=== PATIENT | female | born 1965 | race Caucasian/White ===

== ENCOUNTER 2017-07-19 06:38 | Emergency (ER) | payer SELFPAY ==
[~2017-07-19] VITALS: Ht 167.6 cm; Wt 75.2 kg
[~2017-07-19 06:38] MED LIST: Amlodipine; CITA40TA5 PO; LORA0.5T PO; LOSA1TAB25 PO; hydrochlorothiazide
[2017-07-19] MEDS ORDERED: CITA40TA5 PO (07:13)
[2017-07-19] MEDS ORDERED: SODIUM CHLORIDE 0.9% 1,000 ML IV ONE (07:14)
[2017-07-19] MEDS ORDERED: ONDANSETRON 2MG/ML, 2ML ONE (07:20)
[2017-07-19] MEDS ORDERED: SODIUM CHLORIDE FLUSH 10ML SYR IVF ONE (07:30)
[2017-07-19] MEDS ORDERED: ONDANSETRON 2MG/ML, 2ML IVPush ONE (07:30)
[2017-07-19] MEDS ORDERED: SODIUM CHLORIDE 0.9% 1,000ML IVBOLUS ONE (07:30)
[2017-07-19 07:36] LABS: BASOPHILS # (AUTO) 0.02 x10^3/uL (0-0.1); BASOPHILS % (AUTO) 0 % (0-1); EOSINOPHILS # (AUTO) 0.06 x10^3/uL (0-0.4); EOSINOPHILS % (AUTO) 1 % (1-7); LYMPHOCYTES # (AUTO) 0.96 x10^3/uL (1-3.4); LYMPHOCYTES % (AUTO) 17 % (22-44); MD NO; MEAN CORPUSCULAR HEMOGLOBIN 32.6 pg (27.0-34.8); MEAN CORPUSCULAR VOLUME 95.8 fL (80-100); MEAN PLATELET VOLUME 7.5 fL (7.4-10.4); MONOCYTES # (AUTO) 0.43 x10^3/uL (0.2-0.8); MONOCYTES % (AUTO) 8 % (2-9); NEUTROPHILS % (AUTO) 75 % (42-75); PLATELET COUNT 254 x10^3/uL (130-400); RED BLOOD COUNT 4.31 x10^6/uL (3.82-5.3); RED CELL DISTRIBUTION WIDTH 14.8 % (9.6-15.2)
[2017-07-19 07:37] LABS: MICROSCOPIC NOT IND
[2017-07-19 07:38] LABS: CULTURE INDICATED? NO
[2017-07-19 07:48] LABS: ALBUMIN 3.8 g/dL (3.4-5.0); ANION GAP 13 mmol/L (5-15); CALCIUM 9.4 mg/dL (8.5-10.1); CHLORIDE 98 mmol/L (98-107)
[2017-07-19 07:51] LABS: ALANINE AMINOTRANSFERASE 80 U/L (12-78); ALKALINE PHOSPHATASE 134 U/L (45-117); BILIRUBIN,TOTAL 1.4 mg/dL (0.2-1.0); CREATININE 0.93 mg/dL (0.55-1.02); TOTAL PROTEIN 8.7 g/dL (6.4-8.2)
[2017-07-19] MEDS ORDERED: MAALOX/HYOSCYAMINE/LIDOCAINE 45 ML BTL PO ONE (08:30)
[2017-07-19] MEDS ORDERED: MAALOX/HYOSCYAMINE/LIDOCAINE 45 ML BTL ONE (08:34)
[2017-07-19] MEDS ORDERED: LORazepam 2 MG/ML, 1ML IVPush ONE (09:00)
[2017-07-19] MEDS ORDERED: POTASSIUM CHLORIDE 20 MEQ TAB.ER.PRT PO ONE (09:00)
[2017-07-19] MEDS ORDERED: LORazepam 1MG TABLET ONE (09:04)
[2017-07-19] MEDS ORDERED: LORazepam 2 MG/ML, 1ML ONE (09:07)
[2017-07-19] MEDS ORDERED: POTASSIUM CHLORIDE 20 MEQ TAB.ER.PRT ONE (09:07)
[2017-07-19 10:27] VITALS: BP 148/73
== END 2017-07-19 10:40 | disposition home or self-care (01) ==
LOC: ED 10:34
DX: K29.20 Alcoholic gastritis without bleeding (principal); E87.6 Hypokalemia; I10 Essential (primary) hypertension
CPT/HCPCS: 36415; 74021; 76700; 80053; 81003; 83690; 85025; 93005; 96361; 96374; 99285; J2060; J2405; J7030

== ENCOUNTER 2017-08-16 06:59 | Emergency (ER) | payer MEDICAID ==
[~2017-08-16] VITALS: Ht 167.6 cm; Wt 76.2 kg
[2017-08-16] MEDS ORDERED: LORazepam 1MG TABLET PO ONE ×2 (08:00→09:30)
[2017-08-16 08:06] LABS: BASOPHILS # (AUTO) 0.05 x10^3/uL (0-0.1); BASOPHILS % (AUTO) 1 % (0-1); EOSINOPHILS # (AUTO) 0.05 x10^3/uL (0-0.4); EOSINOPHILS % (AUTO) 1 % (1-7); LYMPHOCYTES # (AUTO) 0.77 x10^3/uL (1-3.4); LYMPHOCYTES % (AUTO) 8 % (22-44); MD NO; MEAN CORPUSCULAR HEMOGLOBIN 32.7 pg (27.0-34.8); MEAN CORPUSCULAR HGB CONC 34.3 g/dL (32.4-35.8); MEAN CORPUSCULAR VOLUME 95.5 fL (80-100); MEAN PLATELET VOLUME 6.9 fL (7.4-10.4); MONOCYTES # (AUTO) 0.51 x10^3/uL (0.2-0.8); MONOCYTES % (AUTO) 5 % (2-9); NEUTROPHILS # (AUTO) 8.13 x10^3/uL (1.8-6.8); NEUTROPHILS % (AUTO) 86 % (42-75); PLATELET COUNT 222 x10^3/uL (130-400); RED BLOOD COUNT 3.95 x10^6/uL (3.82-5.3); RED CELL DISTRIBUTION WIDTH 14.9 % (9.6-15.2)
[2017-08-16] MEDS ORDERED: LORazepam 1MG TABLET ONE ×2 (08:15→09:26)
[2017-08-16 08:17] LABS: ALANINE AMINOTRANSFERASE 56 U/L (12-78); ALBUMIN 3.8 g/dL (3.4-5.0); ANION GAP 10 mmol/L (5-15); CALCIUM 8.8 mg/dL (8.5-10.1); CHLORIDE 101 mmol/L (98-107); CREATININE 0.72 mg/dL (0.55-1.02)
[2017-08-16 08:19] LABS: ALKALINE PHOSPHATASE 107 U/L (45-117); BILIRUBIN,TOTAL 0.5 mg/dL (0.2-1.0); TOTAL PROTEIN 7.9 g/dL (6.4-8.2)
[2017-08-16 10:49] VITALS: BP 128/97
== END 2017-08-16 10:52 | disposition home or self-care (01) ==
LOC: ED 07:53
DX: F41.1 Generalized anxiety disorder (principal); I10 Essential (primary) hypertension
CPT/HCPCS: 36415; 80053; 85025; 93005; 99285

== ENCOUNTER 2018-11-21 10:14 | Inpatient (IN) | payer MEDICAID, OTHER ==
[~2018-11-21] VITALS: Ht 167.6 cm; Wt 74.0 kg
[2018-11-21] MEDS ORDERED: ONDANSETRON 2MG/ML, 2ML IVPush ONE (10:30)
[2018-11-21] MEDS ORDERED: SODIUM CHLORIDE 0.9% 1,000ML IVBOLUS ONE (10:30)
--- NOTE | 2018-11-21 10:37 | NUR ---
PT TO ED FOR ETOH DETOX. PT STATES LAST DRINK WAS YESTERDAY TO "[employer]." PT REPORTS N/V. CONNECTED TO MONIOTRS.TACHY 120S, ALL OTHER VSS ON RA. EDMD ASSESSMENT COMPLETE AND ORDERS RECEIVED.
[2018-11-21] MEDS ORDERED: LORazepam 2 MG/ML, 1ML ONE ×3 (10:42→15:27)
[2018-11-21] MEDS ORDERED: ONDANSETRON 2MG/ML, 2ML ONE (10:42)
--- NOTE | 2018-11-21 10:57 | NUR ---
PT RESTING IN ROOM [facility] FAMILY AT BS. VSS. IV ESTABLISHED AND LABS DRAWN. PT MEDICATED PER MAR. WARM BLANKETS PROVIDED FOR COMFORT. NO OTHER NEEDS EXPRESSED. CALL LIGHT WITHIN REACH. AWAITING RESULTS.
[2018-11-21] MEDS ORDERED: LORazepam 2 MG/ML, 1ML IVPush ONE ×2 (11:00→13:00)
[2018-11-21 11:08] LABS: BASOPHILS # (AUTO) 0.03 x10^3/uL (0-0.1); BASOPHILS % (AUTO) 0 % (0-1); EOSINOPHILS # (AUTO) 0.01 x10^3/uL (0-0.4); EOSINOPHILS % (AUTO) 0 % (1-7); LYMPHOCYTES % (AUTO) 10 % (22-44); MD NO; MEAN CORPUSCULAR HEMOGLOBIN 30.5 pg (27.0-34.8); MEAN CORPUSCULAR HGB CONC 32.9 g/dL (32.4-35.8); MEAN CORPUSCULAR VOLUME 92.8 fL (80-100); MEAN PLATELET VOLUME 6.1 fL (7.4-10.4); MONOCYTES # (AUTO) 0.29 x10^3/uL (0.2-0.8); MONOCYTES % (AUTO) 5 % (2-9); NEUTROPHILS # (AUTO) 5.27 x10^3/uL (1.8-6.8); NEUTROPHILS % (AUTO) 85 % (42-75); PLATELET COUNT 268 x10^3/uL (130-400); RED BLOOD COUNT 3.63 x10^6/uL (3.82-5.3); RED CELL DISTRIBUTION WIDTH 15.8 % (9.6-15.2)
[2018-11-21 11:18] LABS: ALANINE AMINOTRANSFERASE 66 U/L (12-78); ALBUMIN 3.8 g/dL (3.4-5.0); ANION GAP 11 mmol/L (5-15); CALCIUM 8.8 mg/dL (8.5-10.1); CHLORIDE 96 mmol/L (98-107); CREATININE 0.93 mg/dL (0.55-1.02)
[2018-11-21 11:20] LABS: ALKALINE PHOSPHATASE 110 U/L (45-117); BILIRUBIN,TOTAL 0.6 mg/dL (0.2-1.0)
[2018-11-21] MEDS ORDERED: POTASSIUM CHLORIDE 20 MEQ TAB.ER.PRT PO ONE (11:30)
[2018-11-21] MEDS ORDERED: MAGNESIUM SULFATE 1 GM, THIAMINE 100 MG, FOLIC ACID 1 MG, MVI ADULT 10 ML in SODIUM CHL... IV ONE (11:30)
[2018-11-21] MEDS ORDERED: POTASSIUM CHLORIDE 20 MEQ in SODIUM CHLORIDE 0.9% 250 ML IV ONE (11:30)
[2018-11-21] MEDS ORDERED: POTASSIUM CHLORIDE 20 MEQ TAB.ER.PRT ONE ×2 (11:57→15:26)
[2018-11-21] MEDS ORDERED: NS + 20MEQ KCL 1,000 ML IV ONE (11:58)
--- NOTE | 2018-11-21 12:52 | NUR ---
PT RESTING IN ROOM WITH FAMILY AT BS. EDMD MADE AWARE OF INCREASED TREMORS, TAHYCARDIA, N/V AND HEARTBURN. NO NEEDS EXPRESSED. CALL LIGHT WITHIN REACH. AWAITING ORDERS.
[2018-11-21] MEDS ORDERED: FAMOTIDINE 20 MG/2 ML ONE (12:59)
[2018-11-21] MEDS ORDERED: FAMOTIDINE 20 MG/2 ML IVPush ONE (13:00)
[2018-11-21] MEDS ORDERED: LORazepam 2 MG/ML, 1ML IVPush PRN (13:00)
--- NOTE | 2018-11-21 13:07 | NUR ---
PT RESTING IN ROOM WITH FAMILY AT BS. ORDERS RECEIVED AND MEDICATIONS ADMINISTERED. NO NEEDS EXPRESSED. CALL LIGHT WITHIN REACH. AWAITING ROOM ASSIGNMENT.
--- NOTE | 2018-11-21 14:43 | NUR ---
PT RESTING IN ROOM. NO NEEDS EXPRESSED. CALL LIGHT WITHIN REACH. AWAITING ROOM ASSIGNMENT.
[2018-11-21] MEDS ORDERED: LABETALOL 5MG/ML, 20ML IVPush PRN (15:00)
[2018-11-21] MEDS ORDERED: ONDANSETRON 2MG/ML, 2ML IVPush PRN (15:00)
[2018-11-21] MEDS ORDERED: CHLORDIAZEPOXIDE 25 MG CAPSULE PO PRN (15:00)
[2018-11-21] MEDS ORDERED: LORazepam 0.5MG TABLET PO PRN (15:00)
[2018-11-21] MEDS ORDERED: LORazepam 1MG TABLET PO PRN ×2 (15:00)
[2018-11-21] MEDS ORDERED: LORazepam 2 MG/ML, 1ML IV PRN ×4 (15:00)
[2018-11-21] MEDS ORDERED: PROMETHAZINE 25 MG/ML, 1ML IM PRN (15:00)
[2018-11-21] MEDS ORDERED: ENOXAPARIN 40 MG/0.4 ML ONE (15:26)
[2018-11-21 15:37] LABS: TROPONIN I < 0.015 ng/mL (0.000-0.045)
[2018-11-21] MEDS: ENOXAPARIN 40 MG/0.4 ML SQ SCH (15:38)
--- NOTE | 2018-11-21 15:50 | NUR ---
PT RESTING IN ROOM. HOSPITALIST CIWA ORDERS RECEIVED AND MEDICATIONS ADMINISTERED. CIWA SCORE 11. WILL RECHECK IN 2 HOURS. NO NEEDS EXPRESSED. CALL LIGHT WITHIN REACH. AWAITING ROOM ASSIGNMENT.
[2018-11-21 16:30] VITALS: BP 128/89
[2018-11-21 17:03] VITALS: BP 123/73
[2018-11-21] MEDS: POTASSIUM CHLORIDE 20 MEQ TAB.ER.PRT PO SCH (17:44)
[2018-11-21 19:39] VITALS: BP 119/67
[2018-11-21 20:40] LABS: TROPONIN I < 0.015 ng/mL (0.000-0.045)
[2018-11-21] MEDS ORDERED: CITALOPRAM 20 MG TABLET PO SCH (21:00)
[2018-11-22 00:58] VITALS: BP 125/86
[2018-11-22] MEDS: LORazepam 1MG TABLET PO PRN ×5 (04:17→20:44)
[2018-11-22 05:38] LABS: BASOPHILS # (AUTO) 0.03 x10^3/uL (0-0.1); BASOPHILS % (AUTO) 1 % (0-1); EOSINOPHILS # (AUTO) 0.07 x10^3/uL (0-0.4); EOSINOPHILS % (AUTO) 2 % (1-7); LYMPHOCYTES # (AUTO) 0.63 x10^3/uL (1-3.4); LYMPHOCYTES % (AUTO) 14 % (22-44); MD NO; MEAN CORPUSCULAR HEMOGLOBIN 31.4 pg (27.0-34.8); MEAN CORPUSCULAR HGB CONC 33.3 g/dL (32.4-35.8); MEAN CORPUSCULAR VOLUME 94.3 fL (80-100); MEAN PLATELET VOLUME 6.9 fL (7.4-10.4); MONOCYTES % (AUTO) 6 % (2-9); NEUTROPHILS # (AUTO) 3.63 x10^3/uL (1.8-6.8); NEUTROPHILS % (AUTO) 78 % (42-75); PLATELET COUNT 207 x10^3/uL (130-400); RED BLOOD COUNT 3.31 x10^6/uL (3.82-5.3); RED CELL DISTRIBUTION WIDTH 16.2 % (9.6-15.2)
[2018-11-22 05:41] LABS: ALBUMIN 3.2 g/dL (3.4-5.0); ANION GAP 7 mmol/L (5-15); CALCIUM 8.4 mg/dL (8.5-10.1); CHLORIDE 106 mmol/L (98-107)
[2018-11-22 05:46] LABS: ALANINE AMINOTRANSFERASE 49 U/L (12-78); ALKALINE PHOSPHATASE 104 U/L (45-117); BILIRUBIN,TOTAL 1.1 mg/dL (0.2-1.0); CREATININE 0.82 mg/dL (0.55-1.02); TOTAL PROTEIN 7.2 g/dL (6.4-8.2)
[2018-11-22 07:55] VITALS: BP 119/75
[2018-11-22] MEDS ORDERED: CALCIUM CARBONATE 500 MG TAB.CHEW ONE (08:26)
[2018-11-22] MEDS ORDERED: THIAMINE 100MG TABLET PO SCH (09:00)
[2018-11-22] MEDS: CITALOPRAM 20 MG TABLET PO SCH ×2 (09:00→09:12)
[2018-11-22] MEDS: POTASSIUM CHLORIDE 20 MEQ TAB.ER.PRT PO SCH ×2 (09:11→17:01)
[2018-11-22] MEDS: ACETAMINOPHEN 325 MG TABLET PO PRN (09:11)
[2018-11-22] MEDS: FOLIC ACID 1 MG TABLET PO SCH (09:11)
[2018-11-22] MEDS: HYDROCHLOROTHIAZIDE 12.5 MG CAPSULE PO SCH (09:12)
[2018-11-22] MEDS: LOSARTAN 50MG TABLET PO SCH (09:12)
[2018-11-22] MEDS: THIAMINE 100MG TABLET PO SCH (09:12)
[2018-11-22] MEDS: NEUTRA PHOS K 250 MG TABLET PO SCH ×2 (09:16→20:44)
[2018-11-22] MEDS ORDERED: CALCIUM CARBONATE 500 MG TAB.CHEW PO SCH (11:00)
[2018-11-22 12:53] VITALS: BP 138/80
[2018-11-22] MEDS ORDERED: POTASSIUM CHLORIDE 20 MEQ, MAGNESIUM SULFATE 2 GM, THIAMINE 200 MG, MVI ADULT 10 ML, FO... IV SCH (14:00)
[2018-11-22] MEDS: ENOXAPARIN 40 MG/0.4 ML SQ SCH (15:37)
[2018-11-22] MEDS: CALCIUM CARBONATE 500 MG TAB.CHEW PO PRN (15:43)
[2018-11-22] MEDS ORDERED: MAALOX/HYOSCYAMINE/LIDOCAINE 45 ML BTL PO ONE (16:00)
[2018-11-22] MEDS: MAALOX/HYOSCYAMINE/LIDOCAINE 45 ML BTL PO PRN (16:02)
[2018-11-22 19:44] VITALS: BP 118/76
[2018-11-23 01:16] VITALS: BP 124/88
[2018-11-23] MEDS: LORazepam 1MG TABLET PO PRN ×2 (01:25→11:20)
[2018-11-23 05:34] LABS: ALANINE AMINOTRANSFERASE 57 U/L (12-78); ALBUMIN 3.4 g/dL (3.4-5.0); ANION GAP 10 mmol/L (5-15); CALCIUM 9.1 mg/dL (8.5-10.1); CHLORIDE 106 mmol/L (98-107); CREATININE 0.75 mg/dL (0.55-1.02)
[2018-11-23 05:36] LABS: ALKALINE PHOSPHATASE 112 U/L (45-117); BILIRUBIN,TOTAL 0.8 mg/dL (0.2-1.0); TOTAL PROTEIN 7.6 g/dL (6.4-8.2)
[2018-11-23 07:40] VITALS: BP 132/89
[2018-11-23] MEDS ORDERED: POTASSIUM CHLORIDE 20 MEQ TAB.ER.PRT PO SCH (09:00)
[2018-11-23] MEDS: MAALOX/HYOSCYAMINE/LIDOCAINE 45 ML BTL PO PRN (10:20)
[2018-11-23] MEDS: CITALOPRAM 20 MG TABLET PO SCH (10:21)
[2018-11-23] MEDS: OMEPRAZOLE 20 MG CAPSULE.DR PO SCH ×2 (10:21→16:08)
[2018-11-23] MEDS: NEUTRA PHOS K 250 MG TABLET PO SCH ×2 (10:21→20:03)
[2018-11-23] MEDS: LOSARTAN 50MG TABLET PO SCH (10:22)
[2018-11-23] MEDS: THIAMINE 100MG TABLET PO SCH (10:22)
[2018-11-23] MEDS: FOLIC ACID 1 MG TABLET PO SCH (10:22)
[2018-11-23] MEDS: HYDROCHLOROTHIAZIDE 12.5 MG CAPSULE PO SCH (10:22)
[2018-11-23 13:31] VITALS: BP 122/89
[2018-11-23] MEDS: ACETAMINOPHEN 325 MG TABLET PO PRN (13:34)
[2018-11-23] MEDS: ENOXAPARIN 40 MG/0.4 ML SQ SCH (16:08)
[2018-11-23 20:00] VITALS: BP 138/88
[2018-11-24 02:20] VITALS: BP 112/63
[2018-11-24 05:24] LABS: ALANINE AMINOTRANSFERASE 63 U/L (12-78); ALBUMIN 3.4 g/dL (3.4-5.0); ANION GAP 7 mmol/L (5-15); CALCIUM 8.8 mg/dL (8.5-10.1); CHLORIDE 105 mmol/L (98-107)
[2018-11-24 05:27] LABS: ALKALINE PHOSPHATASE 119 U/L (45-117); BILIRUBIN,TOTAL 0.7 mg/dL (0.2-1.0); CREATININE 0.84 mg/dL (0.55-1.02); TOTAL PROTEIN 7.7 g/dL (6.4-8.2)
[2018-11-24] MEDS: OMEPRAZOLE 20 MG CAPSULE.DR PO SCH ×2 (06:22→15:47)
[2018-11-24] MEDS: CITALOPRAM 20 MG TABLET PO SCH (08:23)
[2018-11-24] MEDS: LOSARTAN 50MG TABLET PO SCH (08:23)
[2018-11-24] MEDS: FOLIC ACID 1 MG TABLET PO SCH (08:23)
[2018-11-24] MEDS: HYDROCHLOROTHIAZIDE 12.5 MG CAPSULE PO SCH (08:23)
[2018-11-24] MEDS: THIAMINE 100MG TABLET PO SCH (08:24)
[2018-11-24 08:40] VITALS: BP 121/87
[2018-11-24 13:12] VITALS: BP 123/82
[2018-11-24] MEDS: CALCIUM CARBONATE 500 MG TAB.CHEW PO PRN (14:59)
[2018-11-24] MEDS: ACETAMINOPHEN 325 MG TABLET PO PRN ×2 (14:59→21:38)
[2018-11-24] MEDS: ENOXAPARIN 40 MG/0.4 ML SQ SCH (15:46)
[2018-11-24 19:23] VITALS: BP 104/72
[2018-11-25 01:06] VITALS: BP 131/85
[2018-11-25] MEDS: OMEPRAZOLE 20 MG CAPSULE.DR PO SCH (05:42)
[2018-11-25 08:25] VITALS: BP 120/79
[2018-11-25] MEDS ORDERED: METOPROLOL TARTRATE 25 MG TABLET PO SCH (09:00)
[2018-11-25] MEDS: THIAMINE 100MG TABLET PO SCH (09:12)
[2018-11-25] MEDS: FOLIC ACID 1 MG TABLET PO SCH (09:12)
[2018-11-25] MEDS: LOSARTAN 50MG TABLET PO SCH (09:13)
[2018-11-25] MEDS: HYDROCHLOROTHIAZIDE 12.5 MG CAPSULE PO SCH (09:13)
[2018-11-25] MEDS: CITALOPRAM 20 MG TABLET PO SCH (09:13)
[2018-11-25] MEDS ORDERED: OMEP-110 PO (12:37)
[2018-11-25] MEDS ORDERED: METO25TA35 PO (12:37)
[2018-11-25] MEDS ORDERED: THIA100T67 PO (12:37)
[2018-11-25] MEDS ORDERED: FOLI-17 PO (12:37)
== END 2018-11-25 14:31 | disposition home or self-care (01) | DRG 433 ==
LOC: ED 11:42 → EDIP 13:51 → 4WST 16:51 → DCLOUNGE 11-25 14:06
PROVIDERS: ADMIT Internal Medicine; ATTEND Internal Medicine
DX: K70.10 Alcoholic hepatitis without ascites (principal); E87.1 Hypo-osmolality and hyponatremia; F10.239 Alcohol dependence with withdrawal, unspecified; D64.9 Anemia, unspecified; E83.42 Hypomagnesemia; E86.0 Dehydration; E86.1 Hypovolemia; E87.6 Hypokalemia; F10.229 Alcohol dependence with intoxication, unspecified; I10 Essential (primary) hypertension; K21.9 Gastro-esophageal reflux disease without esophagitis
CPT/HCPCS: 36415; 96361; 99291; J3490; 80053; 80307; 83605; 83735; 84100; 84484; 84703; 85025; 93005; 96365; 96366; 96368; 96375; 96376; G0378; J1650; J2405; J3411; J3475; J3480; J2060; J7030; J7050

== ENCOUNTER 2019-10-27 06:43 | Inpatient (IN) | payer MEDICAID ==
[~2019-10-27] VITALS: Ht 167.6 cm; Wt 74.1 kg
[~2019-10-27 06:43] MED LIST changes: +ATOR20TA37 PO; +EZET10TA70 PO; +FOLI-17 PO; +METO25TA35 PO; +OMEP-110 PO; +THIA100T67 PO
[2019-10-27] MEDS ORDERED: ONDANSETRON ODT 4 MG PO ONE (07:00)
[2019-10-27] MEDS ORDERED: SODIUM CHLORIDE FLUSH 10ML SYR IVF ONE (07:00)
[2019-10-27] MEDS ORDERED: SODIUM CHLORIDE 0.9% 1,000ML IVBOLUS ONE (07:00)
[2019-10-27] MEDS ORDERED: LORazepam 1MG TABLET PO ONE (07:00)
[2019-10-27] MEDS ORDERED: LORazepam 1MG TABLET ONE (07:03)
[2019-10-27] MEDS ORDERED: ONDANSETRON ODT 4 MG ONE (07:03)
--- NOTE | 2019-10-27 07:14 | NUR ---
Pt medicated per aug. Lights dimmed. Call light with in reach. Pt AOx4. awaiting lab work.
[2019-10-27 07:22] LABS: BASOPHILS # (AUTO) 0.02 x10^3/uL (0-0.1); BASOPHILS % (AUTO) 0 % (0-1); EOSINOPHILS # (AUTO) 0.01 x10^3/uL (0-0.4); EOSINOPHILS % (AUTO) 0 % (1-7); LYMPHOCYTES # (AUTO) 0.98 x10^3/uL (1-3.4); LYMPHOCYTES % (AUTO) 16 % (22-44); MD NO; MEAN CORPUSCULAR HEMOGLOBIN 31.4 pg (27.0-34.8); MEAN CORPUSCULAR HGB CONC 33.4 g/dL (32.4-35.8); MEAN CORPUSCULAR VOLUME 94.1 fL (80-100); MEAN PLATELET VOLUME 7.2 fL (7.4-10.4); MONOCYTES # (AUTO) 0.43 x10^3/uL (0.2-0.8); MONOCYTES % (AUTO) 7 % (2-9); NEUTROPHILS # (AUTO) 4.78 x10^3/uL (1.8-6.8); NEUTROPHILS % (AUTO) 77 % (42-75); PLATELET COUNT 303 x10^3/uL (130-400); RED BLOOD COUNT 4.09 x10^6/uL (3.82-5.3); RED CELL DISTRIBUTION WIDTH 15.8 % (9.6-15.2)
[2019-10-27 07:35] LABS: ALANINE AMINOTRANSFERASE 68 U/L (12-78); ALBUMIN 3.6 g/dL (3.4-5.0)
[2019-10-27 07:38] LABS: ALKALINE PHOSPHATASE 153 U/L (45-117); BILIRUBIN,TOTAL 0.9 mg/dL (0.2-1.0); CREATININE 0.93 mg/dL (0.55-1.02); TOTAL PROTEIN 7.7 g/dL (6.4-8.2)
[2019-10-27 07:45] LABS: INTERNATIONAL NORMALIZED RATIO 1.02 (0.93-1.1); PROTHROMBIN TIME 10.8 Seconds (9.6-11.5)
[2019-10-27 08:02] LABS: ANION GAP 11 mmol/L (5-15); CHLORIDE 98 mmol/L (98-107)
--- NOTE | 2019-10-27 08:39 | NUR ---
pt sleeping in [facility]. awaiting in patient bed and k+ from pharmacy. call light with in reach.
[2019-10-27] MEDS ORDERED: POTASSIUM CHLORIDE 40 MEQ in SODIUM CHLORIDE 0.9% 500 ML IV ONE (09:00)
[2019-10-27] MEDS ORDERED: LORazepam 2 MG/ML, 1ML IV PRN ×5 (09:30)
[2019-10-27] MEDS ORDERED: POLYETHYLENE GLYCOL 17 GM PACKET PO PRN (09:30)
[2019-10-27] MEDS ORDERED: LOSARTAN 100 MG TAB PO SCH (09:30)
[2019-10-27] MEDS ORDERED: DOCUSATE 100 MG CAPSULE PO PRN (09:30)
[2019-10-27] MEDS ORDERED: ONDANSETRON 2MG/ML, 2ML IVPush PRN (09:30)
[2019-10-27] MEDS ORDERED: LORazepam 1MG TABLET PO PRN ×4 (09:30)
[2019-10-27] MEDS ORDERED: ONDANSETRON ODT 4 MG PO PRN (09:30)
[2019-10-27] MEDS: LOSARTAN 100 MG TAB PO SCH (11:25)
[2019-10-27] MEDS: FOLIC ACID 1 MG TABLET PO SCH (11:25)
[2019-10-27] MEDS: MULTIVITAMINS/MINERALS TABLET PO SCH (11:25)
[2019-10-27] MEDS: ENOXAPARIN 40 MG/0.4 ML SQ SCH (11:26)
[2019-10-27] MEDS: POTASSIUM CHLORIDE 20 MEQ TAB.ER.PRT PO SCH ×2 (11:26→17:12)
[2019-10-27] MEDS: THIAMINE 100MG TABLET PO SCH (11:28)
[2019-10-27] MEDS ORDERED: MAGNESIUM SULFATE PMX 2GM/50ML 50 ML IV ONE (12:00)
[2019-10-27] MEDS: LACTATED RINGERS 1,000 ML IV SCH ×2 (14:07→22:38)
[2019-10-27 14:18] VITALS: BP_SYST 160; BP_SYST 162; BP_DIAS 101
[2019-10-27 15:44] LABS: ANION GAP 4 mmol/L (5-15); CALCIUM 8.3 mg/dL (8.5-10.1); CHLORIDE 106 mmol/L (98-107); CREATININE 0.91 mg/dL (0.55-1.02)
[2019-10-27] MEDS: LABETALOL 5MG/ML, 20ML IV PRN (18:29)
[2019-10-27 18:30] VITALS: BP 163/113
[2019-10-27 19:39] VITALS: BP 139/90
[2019-10-27] MEDS: CITALOPRAM 20 MG TABLET PO SCH (22:37)
[2019-10-27] MEDS: ACETAMINOPHEN 325 MG TABLET PO PRN (22:38)
[2019-10-27] MEDS: LORazepam 0.5MG TABLET PO PRN (22:38)
[2019-10-28 00:41] VITALS: BP 138/90
[2019-10-28] MEDS: LACTATED RINGERS 1,000 ML IV SCH ×2 (05:59→16:43)
[2019-10-28 07:28] LABS: ALBUMIN 2.9 g/dL (3.4-5.0); ANION GAP 10 mmol/L (5-15); CALCIUM 8.3 mg/dL (8.5-10.1); CHLORIDE 106 mmol/L (98-107)
[2019-10-28 07:32] VITALS: BP 162/103
[2019-10-28 07:32] LABS: ALANINE AMINOTRANSFERASE 49 U/L (12-78); ALKALINE PHOSPHATASE 127 U/L (45-117); BASOPHILS # (AUTO) 0.04 x10^3/uL (0-0.1); BASOPHILS % (AUTO) 1 % (0-1); BILIRUBIN,TOTAL 1.2 mg/dL (0.2-1.0); CREATININE 0.77 mg/dL (0.55-1.02); EOSINOPHILS # (AUTO) 0.22 x10^3/uL (0-0.4); EOSINOPHILS % (AUTO) 5 % (1-7); LYMPHOCYTES # (AUTO) 1.47 x10^3/uL (1-3.4); LYMPHOCYTES % (AUTO) 36 % (22-44); MD NO; MEAN CORPUSCULAR HEMOGLOBIN 31.2 pg (27.0-34.8); MEAN CORPUSCULAR HGB CONC 32.8 g/dL (32.4-35.8); MEAN PLATELET VOLUME 7.9 fL (7.4-10.4); MONOCYTES # (AUTO) 0.34 x10^3/uL (0.2-0.8); MONOCYTES % (AUTO) 8 % (2-9); NEUTROPHILS # (AUTO) 2.07 x10^3/uL (1.8-6.8); NEUTROPHILS % (AUTO) 50 % (42-75); PLATELET COUNT 232 x10^3/uL (130-400); RED BLOOD COUNT 3.62 x10^6/uL (3.82-5.3); RED CELL DISTRIBUTION WIDTH 15.9 % (9.6-15.2); TOTAL PROTEIN 6.5 g/dL (6.4-8.2)
[2019-10-28] MEDS ORDERED: HYDROCHLOROTHIAZIDE 12.5 MG CAPSULE PO SCH (09:00)
[2019-10-28] MEDS: FOLIC ACID 1 MG TABLET PO SCH (09:28)
[2019-10-28] MEDS: MULTIVITAMINS/MINERALS TABLET PO SCH (09:28)
[2019-10-28] MEDS: THIAMINE 100MG TABLET PO SCH (09:28)
[2019-10-28] MEDS: POTASSIUM CHLORIDE 20 MEQ TAB.ER.PRT PO SCH ×2 (09:28→16:44)
[2019-10-28 11:27] VITALS: BP 161/105
[2019-10-28] MEDS: ENOXAPARIN 40 MG/0.4 ML SQ SCH (11:28)
[2019-10-28 12:38] VITALS: BP 155/105
[2019-10-28] MEDS: LORazepam 0.5MG TABLET PO PRN ×2 (12:39→20:51)
[2019-10-28] MEDS ORDERED: POTASSIUM CHLORIDE 10 MEQ TABLET.ER ONE (16:37)
[2019-10-28 19:51] VITALS: BP 150/98
[2019-10-28] MEDS: ACETAMINOPHEN 325 MG TABLET PO PRN (20:51)
[2019-10-28] MEDS: CITALOPRAM 20 MG TABLET PO SCH (20:51)
[2019-10-29 01:43] VITALS: BP 155/105
[2019-10-29 05:53] LABS: BASOPHILS # (AUTO) 0.03 x10^3/uL (0-0.1); BASOPHILS % (AUTO) 1 % (0-1); EOSINOPHILS # (AUTO) 0.36 x10^3/uL (0-0.4); EOSINOPHILS % (AUTO) 8 % (1-7); LYMPHOCYTES # (AUTO) 1.46 x10^3/uL (1-3.4); LYMPHOCYTES % (AUTO) 31 % (22-44); MD NO; MEAN CORPUSCULAR HEMOGLOBIN 31.2 pg (27.0-34.8); MEAN CORPUSCULAR VOLUME 94.6 fL (80-100); MEAN PLATELET VOLUME 8.4 fL (7.4-10.4); MONOCYTES # (AUTO) 0.32 x10^3/uL (0.2-0.8); MONOCYTES % (AUTO) 7 % (2-9); NEUTROPHILS # (AUTO) 2.51 x10^3/uL (1.8-6.8); NEUTROPHILS % (AUTO) 54 % (42-75); PLATELET COUNT 202 x10^3/uL (130-400); RED BLOOD COUNT 3.66 x10^6/uL (3.82-5.3); RED CELL DISTRIBUTION WIDTH 15.9 % (9.6-15.2)
[2019-10-29 05:59] LABS: CHLORIDE 108 mmol/L (98-107)
[2019-10-29 06:08] LABS: ALANINE AMINOTRANSFERASE 49 U/L (12-78); ALBUMIN 2.9 g/dL (3.4-5.0); ALKALINE PHOSPHATASE 126 U/L (45-117); ANION GAP 8 mmol/L (5-15); BILIRUBIN,TOTAL 0.9 mg/dL (0.2-1.0); CALCIUM 8.4 mg/dL (8.5-10.1); CREATININE 0.73 mg/dL (0.55-1.02); TOTAL PROTEIN 6.5 g/dL (6.4-8.2)
[2019-10-29] MEDS: LACTATED RINGERS 1,000 ML IV SCH (06:34)
[2019-10-29 07:20] VITALS: BP 163/112
[2019-10-29] MEDS: POTASSIUM CHLORIDE 20 MEQ TAB.ER.PRT PO SCH ×2 (08:16→17:27)
[2019-10-29] MEDS: FOLIC ACID 1 MG TABLET PO SCH (08:16)
[2019-10-29] MEDS: LOSARTAN 100 MG TAB PO SCH (08:16)
[2019-10-29] MEDS: THIAMINE 100MG TABLET PO SCH (08:17)
[2019-10-29] MEDS: MULTIVITAMINS/MINERALS TABLET PO SCH (08:17)
[2019-10-29] MEDS ORDERED: BISACODYL 10 MG SUPP PR PRN (08:30)
[2019-10-29] MEDS: SENNA/DOCUSATE TABLET PO SCH (09:45)
[2019-10-29] MEDS: ENOXAPARIN 40 MG/0.4 ML SQ SCH (11:55)
[2019-10-29 14:04] VITALS: BP 168/99
[2019-10-29] MEDS: LORazepam 0.5MG TABLET PO PRN ×2 (15:38→20:17)
[2019-10-29 20:13] VITALS: BP 156/109
[2019-10-29] MEDS: CITALOPRAM 20 MG TABLET PO SCH (20:17)
[2019-10-29 22:39] VITALS: BP 158/121
[2019-10-29] MEDS: LABETALOL 5MG/ML, 20ML IV PRN (22:46)
[2019-10-30 00:38] VITALS: BP 118/80
[2019-10-30 05:41] LABS: ALANINE AMINOTRANSFERASE 61 U/L (12-78); ALBUMIN 3.1 g/dL (3.4-5.0); ANION GAP 6 mmol/L (5-15); CALCIUM 8.4 mg/dL (8.5-10.1); CHLORIDE 108 mmol/L (98-107); CREATININE 0.82 mg/dL (0.55-1.02)
[2019-10-30 05:44] LABS: ALKALINE PHOSPHATASE 145 U/L (45-117); TOTAL PROTEIN 6.9 g/dL (6.4-8.2)
[2019-10-30 06:27] VITALS: BP 143/95
[2019-10-30] MEDS: THIAMINE 100MG TABLET PO SCH (07:39)
[2019-10-30] MEDS: POTASSIUM CHLORIDE 20 MEQ TAB.ER.PRT PO SCH (07:39)
[2019-10-30] MEDS: SENNA/DOCUSATE TABLET PO SCH (07:39)
[2019-10-30] MEDS: LOSARTAN 100 MG TAB PO SCH (07:39)
[2019-10-30] MEDS: FOLIC ACID 1 MG TABLET PO SCH (07:39)
[2019-10-30] MEDS: MULTIVITAMINS/MINERALS TABLET PO SCH (07:39)
[2019-10-30] MEDS ORDERED: THIA100T67 PO (09:30)
[2019-10-30] MEDS ORDERED: MULT-484 PO (09:30)
[2019-10-30] MEDS ORDERED: FOLI-17 PO (09:30)
== END 2019-10-30 11:13 | disposition home or self-care (01) | DRG 641 ==
LOC: ED 08:49 → EDIP 09:10 → 4WST 10:15
PROVIDERS: ADMIT Family Medicine; ATTEND Family Medicine
DX: E87.6 Hypokalemia (principal); F10.239 Alcohol dependence with withdrawal, unspecified; E78.5 Hyperlipidemia, unspecified; E83.42 Hypomagnesemia; F32.9 Major depressive disorder, single episode, unspecified; F41.1 Generalized anxiety disorder; I10 Essential (primary) hypertension; R73.9 Hyperglycemia, unspecified; Z90.721 Acquired absence of ovaries, unilateral; Z82.49 Family history of ischemic heart disease and other diseases of the circulatory system; Z83.3 Family history of diabetes mellitus
CPT/HCPCS: 36415; 80048; 80053; 83690; 83735; 84100; 85025; 85610; 93005; 96361; 96374; 99291; G0378; J1650; J3480; Q0162; J3475; J7030; J7040; J7120

== ENCOUNTER 2019-11-20 15:39 | Inpatient (IN) | payer MEDICAID ==
[~2019-11-20] VITALS: Ht 167.6 cm; Wt 79.9 kg
[~2019-11-20 15:39] MED LIST changes: +MULT-484 PO
[2019-11-20] MEDS ORDERED: ATOR10TA9 PO (16:02)
[2019-11-20] MEDS ORDERED: LOSA100T14 PO (16:02)
[2019-11-20] MEDS ORDERED: HYDROCHLOROTH12.5 MG PO (16:03)
--- NOTE | 2019-11-20 16:05 | NUR ---
PT AMULATORY TO ED ROOM. REPORTS SHE'S HERE FOR DETOX. ETOH TODAY: "1/2 PINT" VODKA. HAS BEEN DRINKING DAILY FOR THE PAST WEEK. TODAY: COLD/HOT FLASHES, SWEATING, VOMITING, "I CAN'T SLEEPT". LAST DETOX ATTEMPT WAS IN OCTOBER AT [facility].
--- NOTE | 2019-11-20 16:20 | NUR ---
AMBULATORY TO & FROM [facility] W/OUT INCIDENT; GAIT STEADY. UNABLE TO PRODUCE URINE SPECIMEN AT THIS TIME.
[2019-11-20] MEDS ORDERED: FAMOTIDINE 20 MG/2 ML IV ONE (16:30)
[2019-11-20] MEDS ORDERED: LORazepam 2 MG/ML, 1ML IVPush ONE (16:30)
[2019-11-20] MEDS ORDERED: PROMETHAZINE 25 MG/ML, 1ML IM ONE (16:30)
[2019-11-20] MEDS ORDERED: SODIUM CHLORIDE FLUSH 10ML SYR IVF ONE (16:30)
[2019-11-20] MEDS ORDERED: SODIUM CHLORIDE 0.9% 1,000ML IVBOLUS ONE (16:30)
[2019-11-20] MEDS ORDERED: ONDANSETRON 2MG/ML, 2ML IVPush ONE (16:30)
[2019-11-20] MEDS ORDERED: PROMETHAZINE 25 MG/ML, 1ML ONE (16:54)
[2019-11-20] MEDS ORDERED: FAMOTIDINE 20 MG/2 ML ONE (16:54)
[2019-11-20] MEDS ORDERED: ONDANSETRON 2MG/ML, 2ML ONE (16:54)
[2019-11-20] MEDS ORDERED: LORazepam 2 MG/ML, 1ML ONE (16:54)
--- NOTE | 2019-11-20 16:59 | NUR ---
PT REPORT TO DON CROFT RN. PT CARE TRANSFERRED. UNOPENED MEDICATION VIALS GIVEN TO LANG FOR ADMINISTRATION: PEPCID, ZOFRAN, ATIVAN, PHENERGAN.
[2019-11-20 17:06] LABS: BASOPHILS # (AUTO) 0.02 x10^3/uL (0-0.1); BASOPHILS % (AUTO) 0 % (0-1); EOSINOPHILS # (AUTO) 0.03 x10^3/uL (0-0.4); EOSINOPHILS % (AUTO) 0 % (1-7); LYMPHOCYTES # (AUTO) 0.91 x10^3/uL (1-3.4); LYMPHOCYTES % (AUTO) 8 % (22-44); MD NO; MEAN CORPUSCULAR HEMOGLOBIN 31.9 pg (27.0-34.8); MEAN CORPUSCULAR HGB CONC 33.1 g/dL (32.4-35.8); MEAN CORPUSCULAR VOLUME 96.3 fL (80-100); MEAN PLATELET VOLUME 7.8 fL (7.4-10.4); MONOCYTES % (AUTO) 5 % (2-9); NEUTROPHILS # (AUTO) 9.71 x10^3/uL (1.8-6.8); NEUTROPHILS % (AUTO) 87 % (42-75); PLATELET COUNT 324 x10^3/uL (130-400); RED BLOOD COUNT 4.57 x10^6/uL (3.82-5.3); RED CELL DISTRIBUTION WIDTH 15.6 % (9.6-15.2)
--- NOTE | 2019-11-20 17:06 | NUR ---
BREAK RN: PT MED NOTED FOR ETOH W/D SYMPTOMS. WARM BLANKETS, PILLOW PROVIDED AND LIGHTS TURNED DOWN IN ROOM. IVF INFUSING W/O DIFFICULTY. CALL LIGHT W/I REACH.
[2019-11-20 17:14] LABS: INTERNATIONAL NORMALIZED RATIO 1.01 (0.93-1.1); PROTHROMBIN TIME 10.7 Seconds (9.6-11.5)
[2019-11-20 17:16] LABS: ALANINE AMINOTRANSFERASE 70 U/L (12-78); ALBUMIN 4.2 g/dL (3.4-5.0); ANION GAP 11 mmol/L (5-15); CALCIUM 8.9 mg/dL (8.5-10.1); CHLORIDE 93 mmol/L (98-107); CREATININE 1.54 mg/dL (0.55-1.02)
[2019-11-20 17:21] LABS: ALKALINE PHOSPHATASE 161 U/L (45-117); BILIRUBIN,TOTAL 0.7 mg/dL (0.2-1.0); TOTAL PROTEIN 9.2 g/dL (6.4-8.2)
--- NOTE | 2019-11-20 17:30 | NUR ---
BREAK RN: IVF INFUSED. PT VERBALIZES "FEELING BETTER" HAND TREMMORS RESSOLVED AT REST. VSS.
--- NOTE | 2019-11-20 17:37 | NUR ---
PT REPORT FROM DON CROFT RN. PT CARE RESUMED.
[2019-11-20] MEDS ORDERED: POTASSIUM CHLORIDE 40 MEQ in SODIUM CHLORIDE 0.9% 500 ML IV ONE (18:30)
--- NOTE | 2019-11-20 18:32 | NUR ---
PT AMBULATORY TO [facility] W/OUT INCIDENT: GAIT STEADY.
--- NOTE | 2019-11-20 18:39 | NUR ---
PT RETURNED TO ED ROOM W/OUT INCIDENT. VOIDED SPECIMEN PROVIDED.
[2019-11-20] MEDS ORDERED: NS + 40MEQ KCL 1,000 ML IV ONE (18:46)
--- NOTE | 2019-11-20 18:55 | NUR ---
JEFF SEPULVEDA AT .
[2019-11-20 18:58] LABS: MICROSCOPIC INDICATED
[2019-11-20 19:00] LABS: HCG UR SG 1.015 (1.003-1.030)
[2019-11-20] MEDS ORDERED: POTASSIUM CHLORIDE 20 MEQ TAB.ER.PRT PO ONE (19:00)
--- NOTE | 2019-11-20 19:04 | NUR ---
PER JEFF SEPULVEDA: POTASSIUM ORDER CHANGED TO PO.
[2019-11-20] MEDS ORDERED: POTASSIUM CHLORIDE 20 MEQ TAB.ER.PRT ONE (19:18)
--- NOTE | 2019-11-20 19:25 | NUR ---
POTASSIUM 40mEq PO GIVEN PER EMAR.
[2019-11-20] MEDS ORDERED: BISACODYL 10 MG SUPP PR PRN (19:30)
[2019-11-20] MEDS ORDERED: POLYETHYLENE GLYCOL 17 GM PACKET PO PRN (19:30)
[2019-11-20] MEDS ORDERED: CHLORDIAZEPOXIDE 25 MG CAPSULE PO PRN (19:30)
[2019-11-20] MEDS ORDERED: ONDANSETRON ODT 4 MG PO PRN (19:30)
[2019-11-20] MEDS ORDERED: NS + 20MEQ KCL 1,000 ML IV ONE (20:15)
--- NOTE | 2019-11-20 20:23 | NUR ---
PT REPORT TO JORDON BEGUM FOR ROOM 402-1
[2019-11-20] MEDS: NS + 20MEQ KCL 1,000 ML IV SCH (20:31)
[2019-11-20 20:45] VITALS: BP 128/89
[2019-11-20] MEDS ORDERED: CITALOPRAM 20 MG TABLET PO SCH (21:00)
[2019-11-20] MEDS: THIAMINE 100MG TABLET PO SCH (22:08)
[2019-11-20] MEDS: ATORVASTATIN 10 MG TABLET PO SCH (23:01)
[2019-11-21] MEDS ORDERED: MAGNESIUM SULFATE PMX 2GM/50ML 50 ML IV ONE (02:00)
[2019-11-21 02:02] VITALS: BP 127/84
[2019-11-21] MEDS: NS + 20MEQ KCL 1,000 ML IV SCH (05:13)
[2019-11-21 06:03] LABS: BASOPHILS # (AUTO) 0.04 x10^3/uL (0-0.1); BASOPHILS % (AUTO) 1 % (0-1); EOSINOPHILS # (AUTO) 0.31 x10^3/uL (0-0.4); EOSINOPHILS % (AUTO) 6 % (1-7); LYMPHOCYTES # (AUTO) 1.28 x10^3/uL (1-3.4); LYMPHOCYTES % (AUTO) 25 % (22-44); MD NO; MEAN CORPUSCULAR HEMOGLOBIN 32.3 pg (27.0-34.8); MEAN CORPUSCULAR HGB CONC 33.6 g/dL (32.4-35.8); MONOCYTES # (AUTO) 0.39 x10^3/uL (0.2-0.8); MONOCYTES % (AUTO) 8 % (2-9); NEUTROPHILS # (AUTO) 3.06 x10^3/uL (1.8-6.8); NEUTROPHILS % (AUTO) 60 % (42-75); PLATELET COUNT 206 x10^3/uL (130-400); RED BLOOD COUNT 3.46 x10^6/uL (3.82-5.3); RED CELL DISTRIBUTION WIDTH 15.3 % (9.6-15.2)
[2019-11-21 06:04] LABS: ANION GAP 10 mmol/L (5-15); CALCIUM 7.6 mg/dL (8.5-10.1); CHLORIDE 104 mmol/L (98-107)
[2019-11-21 06:08] LABS: ALANINE AMINOTRANSFERASE 51 U/L (12-78); ALKALINE PHOSPHATASE 119 U/L (45-117); BILIRUBIN,TOTAL 0.8 mg/dL (0.2-1.0); TOTAL PROTEIN 6.4 g/dL (6.4-8.2)
[2019-11-21 08:14] VITALS: BP 141/89
[2019-11-21] MEDS: HYDROCHLOROTHIAZIDE 12.5 MG CAPSULE PO SCH (08:17)
[2019-11-21] MEDS: LOSARTAN 100 MG TAB PO SCH (08:17)
[2019-11-21] MEDS: CITALOPRAM 20 MG TABLET PO SCH (08:17)
[2019-11-21] MEDS: THIAMINE 100MG TABLET PO SCH ×2 (08:17→21:47)
[2019-11-21] MEDS: FOLIC ACID 1 MG TABLET PO SCH (08:18)
[2019-11-21] MEDS: SENNA/DOCUSATE TABLET PO SCH (08:18)
[2019-11-21] MEDS ORDERED: ATORVASTATIN 10 MG TABLET PO SCH (09:00)
[2019-11-21] MEDS: LORazepam 2 MG/ML, 1ML IVPush PRN ×2 (09:06→21:51)
[2019-11-21 12:25] VITALS: BP 140/95
[2019-11-21] MEDS: HEPARIN 5,000 UNITS/ML, 1ML SQ SCH (17:10)
[2019-11-21 18:39] VITALS: BP 137/83
[2019-11-21] MEDS: ATORVASTATIN 10 MG TABLET PO SCH (21:47)
[2019-11-22] MEDS: HEPARIN 5,000 UNITS/ML, 1ML SQ SCH ×2 (00:43→08:40)
[2019-11-22 01:15] VITALS: BP 147/83
[2019-11-22 05:36] LABS: BASOPHILS # (AUTO) 0.04 x10^3/uL (0-0.1); BASOPHILS % (AUTO) 1 % (0-1); EOSINOPHILS % (AUTO) 10 % (1-7); LYMPHOCYTES # (AUTO) 1.17 x10^3/uL (1-3.4); LYMPHOCYTES % (AUTO) 23 % (22-44); MD NO; MEAN CORPUSCULAR HEMOGLOBIN 32.2 pg (27.0-34.8); MEAN CORPUSCULAR HGB CONC 33.5 g/dL (32.4-35.8); MEAN CORPUSCULAR VOLUME 96.1 fL (80-100); MEAN PLATELET VOLUME 8.2 fL (7.4-10.4); MONOCYTES # (AUTO) 0.33 x10^3/uL (0.2-0.8); MONOCYTES % (AUTO) 7 % (2-9); NEUTROPHILS # (AUTO) 2.97 x10^3/uL (1.8-6.8); NEUTROPHILS % (AUTO) 59 % (42-75); PLATELET COUNT 189 x10^3/uL (130-400); RED BLOOD COUNT 3.38 x10^6/uL (3.82-5.3); RED CELL DISTRIBUTION WIDTH 15.7 % (9.6-15.2)
[2019-11-22 05:45] LABS: ALBUMIN 2.9 g/dL (3.4-5.0); ANION GAP 11 mmol/L (5-15); CALCIUM 7.5 mg/dL (8.5-10.1); CHLORIDE 108 mmol/L (98-107)
[2019-11-22 05:48] LABS: ALANINE AMINOTRANSFERASE 53 U/L (12-78); ALKALINE PHOSPHATASE 133 U/L (45-117); BILIRUBIN,TOTAL 1.1 mg/dL (0.2-1.0); CREATININE 0.77 mg/dL (0.55-1.02); TOTAL PROTEIN 6.6 g/dL (6.4-8.2)
[2019-11-22 07:05] VITALS: BP 122/79
[2019-11-22] MEDS: HYDROCHLOROTHIAZIDE 12.5 MG CAPSULE PO SCH (08:38)
[2019-11-22] MEDS: THIAMINE 100MG TABLET PO SCH (08:39)
[2019-11-22] MEDS: FOLIC ACID 1 MG TABLET PO SCH (08:39)
[2019-11-22] MEDS: CITALOPRAM 20 MG TABLET PO SCH (08:39)
[2019-11-22] MEDS: SENNA/DOCUSATE TABLET PO SCH (08:39)
[2019-11-22] MEDS: LOSARTAN 100 MG TAB PO SCH (08:47)
[2019-11-22] MEDS: LORazepam 2 MG/ML, 1ML IVPush PRN (08:48)
[2019-11-22] MEDS ORDERED: HYDR50TA99 PO ×2 (11:13→11:14)
== END 2019-11-22 12:10 | disposition home or self-care (01) | DRG 438 ==
LOC: ED 17:33 → EDIP 18:09 → 4WST 20:41 → DCLOUNGE 11-22 11:59
PROVIDERS: ADMIT Family Medicine; ATTEND Family Medicine
DX: K85.20 Alcohol induced acute pancreatitis without necrosis or infection (principal); N17.0 Acute kidney failure with tubular necrosis; F10.239 Alcohol dependence with withdrawal, unspecified; E87.1 Hypo-osmolality and hyponatremia; E87.2 Acidosis; N39.0 Urinary tract infection, site not specified; E78.5 Hyperlipidemia, unspecified; F41.1 Generalized anxiety disorder; Y90.0 Blood alcohol level of less than 20 mg/100 ml; E87.6 Hypokalemia; R74.0 Nonspecific elevation of levels of transaminase and lactic acid dehydrogenase [LDH]; R00.0 Tachycardia, unspecified; E86.0 Dehydration; I10 Essential (primary) hypertension; Z90.721 Acquired absence of ovaries, unilateral; Z83.3 Family history of diabetes mellitus; Z82.49 Family history of ischemic heart disease and other diseases of the circulatory system
CPT/HCPCS: 36415; 96372; 96374; 99285; J3490; 71045; 80053; 81001; 81025; 83605; 83690; 83735; 83880; 85025; 85610; 87086; 93005; G0378; J1644; J2405; J2550; J3480; J2060; J3475; J7030

== ENCOUNTER 2019-12-07 09:15 | Emergency (ER) | payer MEDICAID ==
[~2019-12-07] VITALS: Ht 167.6 cm; Wt 77.5 kg
[~2019-12-07 09:15] MED LIST changes: +ATOR10TA9 PO; +HYDR50TA99 PO; +HYDROCHLOROTH12.5 MG PO; +LOSA100T14 PO
[2019-12-07] MEDS ORDERED: SODIUM CHLORIDE 0.9% 1,000ML IVBOLUS ONE (10:00)
[2019-12-07] MEDS ORDERED: ONDANSETRON 2MG/ML, 2ML IVPush ONE (10:00)
[2019-12-07] MEDS ORDERED: LORazepam 2 MG/ML, 1ML IVPush ONE (10:00)
[2019-12-07] MEDS ORDERED: ONDANSETRON 2MG/ML, 2ML ONE (10:02)
[2019-12-07 10:03] LABS: BASOPHILS # (AUTO) 0.01 x10^3/uL (0-0.1); BASOPHILS % (AUTO) 0 % (0-1); EOSINOPHILS # (AUTO) 0.02 x10^3/uL (0-0.4); EOSINOPHILS % (AUTO) 0 % (1-7); LYMPHOCYTES # (AUTO) 0.56 x10^3/uL (1-3.4); LYMPHOCYTES % (AUTO) 7 % (22-44); MD NO; MEAN CORPUSCULAR HGB CONC 33.4 g/dL (32.4-35.8); MEAN CORPUSCULAR VOLUME 95.8 fL (80-100); MEAN PLATELET VOLUME 5.7 fL (7.4-10.4); MONOCYTES # (AUTO) 0.33 x10^3/uL (0.2-0.8); MONOCYTES % (AUTO) 4 % (2-9); NEUTROPHILS # (AUTO) 7.28 x10^3/uL (1.8-6.8); NEUTROPHILS % (AUTO) 89 % (42-75); PLATELET COUNT 364 x10^3/uL (130-400); RED CELL DISTRIBUTION WIDTH 15.1 % (9.6-15.2)
[2019-12-07] MEDS ORDERED: LORazepam 2 MG/ML, 1ML ONE (10:03)
--- NOTE | 2019-12-07 10:08 | NUR ---
PT STATES WANTS ETOH DETOX TODAY, STATES SHE HAS BEEN DRINKING HEAVY DAILY X2 MONTHS. PT IS SLIGHTLY TREMULOUS, REMAINS A&OX4, PROTECTING OWN AIRWAY WELL. PT MEDICATED PER ORDERS, PLACED ON MONITORS. AWAITING LAB RESULTS. CONT TO MONITOR.
[2019-12-07 10:13] LABS: ALANINE AMINOTRANSFERASE 54 U/L (12-78); ALBUMIN 3.6 g/dL (3.4-5.0); ANION GAP 10 mmol/L (5-15); CALCIUM 9.1 mg/dL (8.5-10.1); CHLORIDE 96 mmol/L (98-107); CREATININE 1.13 mg/dL (0.55-1.02)
[2019-12-07 10:15] LABS: ALKALINE PHOSPHATASE 154 U/L (45-117); BILIRUBIN,TOTAL 0.6 mg/dL (0.2-1.0)
--- NOTE | 2019-12-07 10:22 | NUR ---
PT AWARE NEEDS URINE, STATES UNABLE TO URINATE AT THIS TIME. WILL RECHECK.
[2019-12-07] MEDS ORDERED: DIAZEPAM 5 MG/ML, 2ML ONE (10:58)
[2019-12-07] MEDS ORDERED: DIAZEPAM 5 MG/ML, 10ML VIAL IV ONE (11:00)
--- NOTE | 2019-12-07 11:11 | NUR ---
PT UP TO VOID, STANDBY ASSISST, PT SLIGHTLY UNSTEADY ON HER FEET. PT BACK TO BED, PLACED ON MONITORS. PT REMAINS SLIGHTLY TREMULOUS. CONT TO MONITOR.
[2019-12-07 11:29] LABS: AMPHETAMINE SCREEN, URINE Negative (Negative); BARBITURATE SCREEN, URINE Negative (Negative); BENZODIAZEPINE SCREEN, URINE Negative (Negative); CANNABINOID SCREEN, URINE Positive (Negative); COCAINE SCREEN, URINE Negative (Negative); METHADONE SCREEN, URINE Negative (Negative); OPIATE SCREEN, URINE Negative (Negative)
[2019-12-07 12:21] VITALS: BP 144/94
--- NOTE | 2019-12-07 12:21 | NUR ---
PT SLEEPING AWAKES TO VOICE, REPORTS "FEELS GOOD"
== END 2019-12-07 12:47 | disposition home or self-care (01) ==
LOC: ED 10:05
DX: F10.239 Alcohol dependence with withdrawal, unspecified (principal); R45.1 Restlessness and agitation; R11.0 Nausea; I10 Essential (primary) hypertension; F17.200 Nicotine dependence, unspecified, uncomplicated; Y90.0 Blood alcohol level of less than 20 mg/100 ml
CPT/HCPCS: 36415; 80053; 80307; 85025; 96374; 96375; 99284; J2060; J2405; J3360; J7030

== ENCOUNTER 2020-02-10 15:25 | Inpatient (IN) | payer MEDICAID ==
[~2020-02-10] VITALS: Ht 167.6 cm; Wt 79.4 kg
[2020-02-10] MEDS ORDERED: LORazepam 2 MG/ML, 1ML ONE (15:50)
[2020-02-10] MEDS ORDERED: SODIUM CHLORIDE FLUSH 10ML SYR IVF ONE (16:00)
[2020-02-10] MEDS ORDERED: LORazepam 2 MG/ML, 1ML IVPush ONE (16:00)
[2020-02-10] MEDS ORDERED: SODIUM CHLORIDE 0.9% 1,000ML IVBOLUS ONE (16:00)
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
[2020-02-10] MEDS ORDERED: HYDR50CA2 PO (16:24)
[2020-02-10] MEDS ORDERED: SERT-237 PO (16:24)
[2020-02-10] MEDS ORDERED: HYDR25TA6 PO (16:24)
[2020-02-10] MEDS ORDERED: CITA20TA6 PO (16:24)
[2020-02-10] MEDS ORDERED: LOSA50TA14 PO (16:24)
[2020-02-10] MEDS ORDERED: BUSP10TA PO (16:24)
--- NOTE | 2020-02-10 16:46 | NUR ---
ATIVAN GIVEN PER EMAR.
[2020-02-10 16:52] LABS: BASOPHILS # (AUTO) 0.01 x10^3/uL (0-0.1); BASOPHILS % (AUTO) 0 % (0-1); EOSINOPHILS # (AUTO) 0.38 x10^3/uL (0-0.4); EOSINOPHILS % (AUTO) 4 % (1-7); LYMPHOCYTES % (AUTO) 11 % (22-44); MD NO; MEAN CORPUSCULAR HEMOGLOBIN 31.5 pg (27.0-34.8); MEAN CORPUSCULAR HGB CONC 34.3 g/dL (32.4-35.8); MEAN CORPUSCULAR VOLUME 91.9 fL (80-100); MEAN PLATELET VOLUME 6.8 fL (7.4-10.4); MONOCYTES # (AUTO) 0.89 x10^3/uL (0.2-0.8); MONOCYTES % (AUTO) 10 % (2-9); NEUTROPHILS # (AUTO) 6.49 x10^3/uL (1.8-6.8); NEUTROPHILS % (AUTO) 74 % (42-75); PLATELET COUNT 113 x10^3/uL (130-400); RED BLOOD COUNT 3.57 x10^6/uL (3.82-5.3); RED CELL DISTRIBUTION WIDTH 13.9 % (9.6-15.2)
[2020-02-10 17:00] LABS: INTERNATIONAL NORMALIZED RATIO 1.15 (0.93-1.1); PROTHROMBIN TIME 11.9 Seconds (9.6-11.5)
[2020-02-10 17:01] LABS: ALANINE AMINOTRANSFERASE 104 U/L (12-78); ALBUMIN 3.1 g/dL (3.4-5.0); ANION GAP 10 mmol/L (5-15); CALCIUM 8.9 mg/dL (8.5-10.1); CHLORIDE 99 mmol/L (98-107); CREATININE 1.24 mg/dL (0.55-1.02)
[2020-02-10 17:11] LABS: ALKALINE PHOSPHATASE 151 U/L (45-117); TOTAL PROTEIN 6.6 g/dL (6.4-8.2)
--- NOTE | 2020-02-10 17:26 | NUR ---
ALL RESULTS ARE BACK AT THIS TIME. CHART UP FOR RECHECK.
--- NOTE | 2020-02-10 17:27 | NUR ---
PT REPORT FROM BREAK TARAN RUVALCABA. PT CARE TO BE RESUMED.
[2020-02-10] MEDS ORDERED: morphine SULFATE 10 MG/ML, 1ML IVPush PRN (18:30)
[2020-02-10] MEDS ORDERED: hydrOXyzine 50MG TABLET ONE (18:39)
--- NOTE | 2020-02-10 19:16 | NUR ---
Liz ochoa in [facility] - 02/10/20 at 1918 by MIN CALLED UNIT, RECEIVING RN UNAVAILABLE
[2020-02-10] MEDS: HYDROXYZINE PAMOATE 50MG CAP PO SCH (19:22)
[2020-02-10] MEDS: LACTATED RINGERS 1,000 ML IV SCH ×2 (19:40→22:58)
--- NOTE | 2020-02-10 19:43 | NUR ---
NS INFUSED. LR HUNG. IV SITE PATENT.
--- NOTE | 2020-02-10 20:57 | NUR ---
RHYS HASKINS ANFlower VIT B-1 ORDERED FROM PHARMACY
[2020-02-10] MEDS: BUSPIRONE 10 MG TABLET PO SCH (21:22)
[2020-02-10] MEDS: ATORVASTATIN 10 MG TABLET PO SCH (21:22)
[2020-02-10] MEDS: THIAMINE 100MG TABLET PO SCH (21:23)
--- NOTE | 2020-02-10 21:29 | NUR ---
BUSPAR, LIPITOR AND VIT B-1 GIVEN PER EMAR.
--- NOTE | 2020-02-10 21:48 | NUR ---
PT REPORT TO JORDON BELL FOR ROOM 510-2
--- NOTE | 2020-02-10 21:51 | NUR ---
Liz ochoa in [facility] - 02/10/[address] ADELIA TEE EXAM
[2020-02-10 22:30] VITALS: BP 127/89
[2020-02-11 02:09] VITALS: BP 136/94
[2020-02-11] MEDS: LORazepam 2 MG/ML, 1ML IVPush PRN ×5 (02:25→23:15)
[2020-02-11] MEDS: HYDROXYZINE PAMOATE 50MG CAP PO SCH ×4 (04:41→20:56)
[2020-02-11] MEDS: LACTATED RINGERS 1,000 ML IV SCH ×5 (04:41→20:58)
[2020-02-11 05:22] LABS: ALBUMIN 2.6 g/dL (3.4-5.0); ANION GAP 9 mmol/L (5-15); CALCIUM 8.5 mg/dL (8.5-10.1); CHLORIDE 103 mmol/L (98-107)
[2020-02-11 05:28] LABS: ALANINE AMINOTRANSFERASE 81 U/L (12-78); ALKALINE PHOSPHATASE 131 U/L (45-117); BILIRUBIN,TOTAL 2.7 mg/dL (0.2-1.0); CREATININE 0.94 mg/dL (0.55-1.02); TOTAL PROTEIN 5.7 g/dL (6.4-8.2)
[2020-02-11 06:54] LABS: BASOPHILS # (AUTO) 0.03 x10^3/uL (0-0.1); BASOPHILS % (AUTO) 1 % (0-1); EOSINOPHILS # (AUTO) 0.37 x10^3/uL (0-0.4); EOSINOPHILS % (AUTO) 6 % (1-7); LYMPHOCYTES # (AUTO) 1.22 x10^3/uL (1-3.4); LYMPHOCYTES % (AUTO) 18 % (22-44); MD SCAN; MEAN CORPUSCULAR HEMOGLOBIN 31.6 pg (27.0-34.8); MEAN CORPUSCULAR HGB CONC 33.8 g/dL (32.4-35.8); MEAN CORPUSCULAR VOLUME 93.3 fL (80-100); MEAN PLATELET VOLUME 7.1 fL (7.4-10.4); MONOCYTES # (AUTO) 0.69 x10^3/uL (0.2-0.8); MONOCYTES % (AUTO) 10 % (2-9); NEUTROPHILS # (AUTO) 4.53 x10^3/uL (1.8-6.8); NEUTROPHILS % (AUTO) 66 % (42-75); PLATELET COUNT 93 x10^3/uL (130-400); RED BLOOD COUNT 3.17 x10^6/uL (3.82-5.3); RED CELL DISTRIBUTION WIDTH 13.9 % (9.6-15.2)
[2020-02-11 08:34] VITALS: BP 133/89
[2020-02-11] MEDS: BUSPIRONE 10 MG TABLET PO SCH ×2 (09:00→20:56)
[2020-02-11] MEDS: THIAMINE 100MG TABLET PO SCH ×2 (09:00→20:56)
[2020-02-11] MEDS: FOLIC ACID 1 MG TABLET PO SCH (09:00)
[2020-02-11] MEDS: MULTIVITAMINS/MINERALS TABLET PO SCH (09:00)
[2020-02-11] MEDS: HYDROCHLOROTHIAZIDE 12.5 MG CAPSULE PO SCH (09:50)
[2020-02-11] MEDS: CITALOPRAM 20 MG TABLET PO SCH (09:50)
[2020-02-11] MEDS: LOSARTAN 50MG TABLET PO SCH (09:50)
[2020-02-11] MEDS: SERTRALINE 50MG TABLET PO SCH (09:50)
[2020-02-11] MEDS ORDERED: HYDROXYZINE PAMOATE 25MG CAP ONE (11:33)
[2020-02-11] MEDS: ONDANSETRON 2MG/ML, 2ML IVPush PRN (13:19)
[2020-02-11 14:03] VITALS: BP 130/85
[2020-02-11 14:15] LABS: CLOSTRIDIUM DIFFICILE ANTIGEN POSITIVE; CLOSTRIDIUM DIFFICILE TOXIN NEGATIVE (Negative)
[2020-02-11] MEDS: POTASSIUM CHLORIDE 20 MEQ, MAGNESIUM SULFATE 1 GM, THIAMINE 200 MG, FOLIC ACID 1 MG, MV... IV SCH (17:55)
[2020-02-11 20:38] VITALS: BP 139/91
[2020-02-11] MEDS: ATORVASTATIN 10 MG TABLET PO SCH (20:56)
[2020-02-12 01:23] VITALS: BP 153/84
[2020-02-12] MEDS: HYDROXYZINE PAMOATE 50MG CAP PO SCH ×4 (03:00→19:12)
[2020-02-12 05:35] LABS: ALBUMIN 2.5 g/dL (3.4-5.0); ANION GAP 7 mmol/L (5-15); CALCIUM 7.9 mg/dL (8.5-10.1); CHLORIDE 104 mmol/L (98-107)
[2020-02-12 05:37] LABS: BASOPHILS # (AUTO) 0.02 x10^3/uL (0-0.1); BASOPHILS % (AUTO) 0 % (0-1); EOSINOPHILS # (AUTO) 0.36 x10^3/uL (0-0.4); EOSINOPHILS % (AUTO) 7 % (1-7); LYMPHOCYTES # (AUTO) 0.95 x10^3/uL (1-3.4); LYMPHOCYTES % (AUTO) 17 % (22-44); MD NO; MEAN CORPUSCULAR HEMOGLOBIN 31.2 pg (27.0-34.8); MEAN CORPUSCULAR HGB CONC 33.5 g/dL (32.4-35.8); MEAN CORPUSCULAR VOLUME 93.3 fL (80-100); MEAN PLATELET VOLUME 7.2 fL (7.4-10.4); MONOCYTES # (AUTO) 0.59 x10^3/uL (0.2-0.8); MONOCYTES % (AUTO) 11 % (2-9); NEUTROPHILS # (AUTO) 3.62 x10^3/uL (1.8-6.8); NEUTROPHILS % (AUTO) 65 % (42-75); PLATELET COUNT 113 x10^3/uL (130-400); RED BLOOD COUNT 3.05 x10^6/uL (3.82-5.3); RED CELL DISTRIBUTION WIDTH 13.7 % (9.6-15.2)
[2020-02-12 05:38] LABS: ALANINE AMINOTRANSFERASE 74 U/L (12-78); ALKALINE PHOSPHATASE 141 U/L (45-117); BILIRUBIN,TOTAL 1.9 mg/dL (0.2-1.0); CREATININE 0.77 mg/dL (0.55-1.02); TOTAL PROTEIN 5.9 g/dL (6.4-8.2)
[2020-02-12 08:06] VITALS: BP 145/90
[2020-02-12] MEDS: MULTIVITAMINS/MINERALS TABLET PO SCH (09:00)
[2020-02-12] MEDS: CITALOPRAM 20 MG TABLET PO SCH (09:08)
[2020-02-12] MEDS: THIAMINE 100MG TABLET PO SCH ×2 (09:08→20:19)
[2020-02-12] MEDS: FOLIC ACID 1 MG TABLET PO SCH (09:08)
[2020-02-12] MEDS: SERTRALINE 50MG TABLET PO SCH (09:08)
[2020-02-12] MEDS: BUSPIRONE 10 MG TABLET PO SCH ×2 (09:08→20:19)
[2020-02-12] MEDS: HYDROCHLOROTHIAZIDE 12.5 MG CAPSULE PO SCH (09:09)
[2020-02-12] MEDS: LOSARTAN 50MG TABLET PO SCH (09:09)
[2020-02-12] MEDS: LACTATED RINGERS 1,000 ML IV SCH ×2 (09:11→19:12)
[2020-02-12] MEDS ORDERED: LORazepam 0.5MG TABLET PO PRN (09:30)
[2020-02-12] MEDS ORDERED: LORazepam 1MG TABLET PO PRN (09:30)
[2020-02-12] MEDS ORDERED: MAGNESIUM SULFATE PMX 2GM/50ML 50 ML IV ONE (13:00)
[2020-02-12] MEDS: LORazepam 1MG TABLET PO PRN (13:46)
[2020-02-12 15:20] VITALS: BP 152/94
[2020-02-12 17:18] VITALS: BP 156/100
[2020-02-12 19:52] LABS: TROPONIN I < 0.015 ng/mL (0.000-0.045)
[2020-02-12] MEDS: POTASSIUM CHLORIDE 20 MEQ, MAGNESIUM SULFATE 1 GM, THIAMINE 200 MG, FOLIC ACID 1 MG, MV... IV SCH (20:18)
[2020-02-12] MEDS: ATORVASTATIN 10 MG TABLET PO SCH (20:19)
[2020-02-12 20:29] VITALS: BP 148/97
[2020-02-12 23:47] LABS: TROPONIN I < 0.015 ng/mL (0.000-0.045)
[2020-02-13 00:28] VITALS: BP 134/92
[2020-02-13] MEDS ORDERED: IBUPROFEN 200 MG TABLET PO ONE (00:30)
[2020-02-13] MEDS: LACTATED RINGERS 1,000 ML IV SCH ×3 (02:47→14:06)
[2020-02-13] MEDS: HYDROXYZINE PAMOATE 50MG CAP PO SCH ×4 (02:52→20:21)
[2020-02-13 05:06] LABS: TROPONIN I < 0.015 ng/mL (0.000-0.045)
[2020-02-13 09:10] VITALS: BP 138/93
[2020-02-13] MEDS: ONDANSETRON 2MG/ML, 2ML IVPush PRN (09:12)
[2020-02-13] MEDS: THIAMINE 100MG TABLET PO SCH ×2 (09:18→20:21)
[2020-02-13] MEDS: SERTRALINE 50MG TABLET PO SCH (09:18)
[2020-02-13] MEDS: BUSPIRONE 10 MG TABLET PO SCH ×2 (09:18→20:21)
[2020-02-13] MEDS: LOSARTAN 50MG TABLET PO SCH (09:18)
[2020-02-13] MEDS: CITALOPRAM 20 MG TABLET PO SCH (09:18)
[2020-02-13] MEDS: MULTIVITAMINS/MINERALS TABLET PO SCH ×2 (09:18→09:20)
[2020-02-13] MEDS: HYDROCHLOROTHIAZIDE 12.5 MG CAPSULE PO SCH (09:19)
[2020-02-13] MEDS: FOLIC ACID 1 MG TABLET PO SCH (09:19)
[2020-02-13] MEDS: LORazepam 1MG TABLET PO PRN ×2 (09:35→20:21)
[2020-02-13] MEDS: VANCOMYCIN 50 MG/ML ORAL SUSP PO SCH ×3 (10:35→20:31)
[2020-02-13 13:53] VITALS: BP 139/89
[2020-02-13] MEDS: POTASSIUM CHLORIDE 20 MEQ, MAGNESIUM SULFATE 1 GM, THIAMINE 200 MG, FOLIC ACID 1 MG, MV... IV SCH (16:53)
[2020-02-13] MEDS: LORazepam 2 MG/ML, 1ML IVPush PRN (17:50)
[2020-02-13] MEDS: ATORVASTATIN 10 MG TABLET PO SCH (20:21)
[2020-02-13 20:27] VITALS: BP 121/94
[2020-02-14] MEDS: LACTATED RINGERS 1,000 ML IV SCH ×3 (00:18→10:56)
[2020-02-14 00:21] VITALS: BP 148/98
[2020-02-14] MEDS: HYDROXYZINE PAMOATE 50MG CAP PO SCH ×2 (03:05→09:44)
[2020-02-14] MEDS: LORazepam 1MG TABLET PO PRN (03:06)
[2020-02-14] MEDS: VANCOMYCIN 50 MG/ML ORAL SUSP PO SCH ×3 (03:14→15:17)
[2020-02-14 05:20] LABS: ANION GAP 7 mmol/L (5-15); CALCIUM 7.8 mg/dL (8.5-10.1); CHLORIDE 104 mmol/L (98-107); CREATININE 0.61 mg/dL (0.55-1.02)
[2020-02-14 05:21] LABS: BASOPHILS % (AUTO) 0 % (0-1); EOSINOPHILS # (AUTO) 0.28 x10^3/uL (0-0.4); EOSINOPHILS % (AUTO) 5 % (1-7); LYMPHOCYTES # (AUTO) 0.82 x10^3/uL (1-3.4); LYMPHOCYTES % (AUTO) 16 % (22-44); MD NO; MEAN CORPUSCULAR HEMOGLOBIN 30.6 pg (27.0-34.8); MEAN CORPUSCULAR HGB CONC 32.7 g/dL (32.4-35.8); MEAN CORPUSCULAR VOLUME 93.6 fL (80-100); MEAN PLATELET VOLUME 6.9 fL (7.4-10.4); MONOCYTES # (AUTO) 0.72 x10^3/uL (0.2-0.8); MONOCYTES % (AUTO) 14 % (2-9); NEUTROPHILS # (AUTO) 3.44 x10^3/uL (1.8-6.8); NEUTROPHILS % (AUTO) 65 % (42-75); PLATELET COUNT 163 x10^3/uL (130-400); RED BLOOD COUNT 2.95 x10^6/uL (3.82-5.3); RED CELL DISTRIBUTION WIDTH 13.8 % (9.6-15.2)
[2020-02-14 08:25] VITALS: BP 134/93
[2020-02-14] MEDS: SERTRALINE 50MG TABLET PO SCH (09:44)
[2020-02-14] MEDS: BUSPIRONE 10 MG TABLET PO SCH (09:44)
[2020-02-14] MEDS: THIAMINE 100MG TABLET PO SCH (09:44)
[2020-02-14] MEDS: FOLIC ACID 1 MG TABLET PO SCH (09:44)
[2020-02-14] MEDS: MULTIVITAMINS/MINERALS TABLET PO SCH (09:44)
[2020-02-14] MEDS: CITALOPRAM 20 MG TABLET PO SCH (09:44)
[2020-02-14] MEDS: LOSARTAN 50MG TABLET PO SCH (09:45)
[2020-02-14] MEDS: HYDROCHLOROTHIAZIDE 12.5 MG CAPSULE PO SCH (09:45)
[2020-02-14] MEDS ORDERED: LACT1CAP35 PO (13:25)
[2020-02-14] MEDS ORDERED: VANC1VIA3 PO (13:25)
[2020-02-14 13:42] VITALS: BP 144/95
== END 2020-02-14 15:38 | disposition home or self-care (01) | DRG 371 ==
LOC: ED 16:49 → EDIP 17:43 → 5SO 22:08
PROVIDERS: ADMIT Internal Medicine; ATTEND Internal Medicine
DX: A04.72 Enterocolitis due to Clostridium difficile, not specified as recurrent (principal); K85.20 Alcohol induced acute pancreatitis without necrosis or infection; D64.9 Anemia, unspecified; E78.5 Hyperlipidemia, unspecified; F10.20 Alcohol dependence, uncomplicated; F17.200 Nicotine dependence, unspecified, uncomplicated; I10 Essential (primary) hypertension; K86.89 Other specified diseases of pancreas; Z82.49 Family history of ischemic heart disease and other diseases of the circulatory system; Z90.721 Acquired absence of ovaries, unilateral; Z83.3 Family history of diabetes mellitus; R74.0 Nonspecific elevation of levels of transaminase and lactic acid dehydrogenase [LDH]
CPT/HCPCS: 36415; J3370; 74181; 80048; 80053; 82607; 83605; 83690; 83735; 84100; 84484; 85025; 85610; 85730; 87324; 87493; 93005; G0378; J2405; J3411; J3475; J3480; J2060; J7030; J7120

== ENCOUNTER 2020-02-22 08:17 | Emergency (ER) | payer MEDICAID ==
[~2020-02-22] VITALS: Ht 167.6 cm; Wt 71.0 kg
[~2020-02-22 08:17] MED LIST changes: +BUSP10TA PO; +CITA20TA6 PO; +HYDR25TA6 PO; +HYDR50CA2 PO; +LACT1CAP35 PO; +LOSA50TA14 PO; +SERT-237 PO; +VANC1VIA3 PO
--- NOTE | 2020-02-22 08:59 | NUR ---
first contact with pt. pt c/o appetite change/nausea. pt had c-diff and dc from this hospital with abx. pt denies any diarrhea at this time. pt's aox4. resps even and unlabored. bp/spo2 monitors in place. call light within reach. pa at bedside evaluating at this time.
[2020-02-22] MEDS ORDERED: SODIUM CHLORIDE 0.9% 1,000ML IVBOLUS ONE (09:00)
[2020-02-22] MEDS ORDERED: SODIUM CHLORIDE FLUSH 10ML SYR IVF ONE (09:00)
[2020-02-22] MEDS ORDERED: ONDANSETRON 2MG/ML, 2ML IVPush ONE (09:00)
[2020-02-22] MEDS ORDERED: ONDANSETRON 2MG/ML, 2ML ONE (09:02)
--- NOTE | 2020-02-22 09:23 | NUR ---
piv est on r ac with no complications. pt medicated per emar. ns infusing at this time. pt tolerated well.
--- NOTE | 2020-02-22 09:29 | NUR ---
Note gabriela in ED - 02/22/20 at 0929 by DEEPTHI pt back to room from ct. [facility] in [facility]. pt's aox4. resps even and unlabored.
[2020-02-22 09:45] LABS: BASOPHILS # (AUTO) 0.06 x10^3/uL (0-0.1); BASOPHILS % (AUTO) 0 % (0-1); EOSINOPHILS # (AUTO) 0.22 x10^3/uL (0-0.4); EOSINOPHILS % (AUTO) 2 % (1-7); LYMPHOCYTES # (AUTO) 1.15 x10^3/uL (1-3.4); LYMPHOCYTES % (AUTO) 9 % (22-44); MD NO; MEAN CORPUSCULAR HEMOGLOBIN 30.3 pg (27.0-34.8); MEAN CORPUSCULAR VOLUME 94.8 fL (80-100); MEAN PLATELET VOLUME 6.9 fL (7.4-10.4); MONOCYTES # (AUTO) 0.64 x10^3/uL (0.2-0.8); MONOCYTES % (AUTO) 5 % (2-9); NEUTROPHILS # (AUTO) 11.28 x10^3/uL (1.8-6.8); NEUTROPHILS % (AUTO) 85 % (42-75); PLATELET COUNT 904 x10^3/uL (130-400); RED BLOOD COUNT 4.36 x10^6/uL (3.82-5.3); RED CELL DISTRIBUTION WIDTH 13.4 % (9.6-15.2)
[2020-02-22 09:55] LABS: ALANINE AMINOTRANSFERASE 120 U/L (12-78); ALBUMIN 3.9 g/dL (3.4-5.0); ANION GAP 8 mmol/L (5-15); CALCIUM 11.2 mg/dL (8.5-10.1); CHLORIDE 95 mmol/L (98-107); CREATININE 1.33 mg/dL (0.55-1.02)
[2020-02-22 09:57] LABS: ALKALINE PHOSPHATASE 186 U/L (45-117); BILIRUBIN,TOTAL 0.7 mg/dL (0.2-1.0)
[2020-02-22 10:07] VITALS: BP 107/77
[2020-02-22] MEDS ORDERED: POTASSIUM CHLORIDE 20 MEQ TAB.ER.PRT ONE (10:12)
--- NOTE | 2020-02-22 10:18 | NUR ---
pt medicated per emar. pt tolerated well. edmd at bedside at this time.
[2020-02-22] MEDS ORDERED: POTASSIUM CHLORIDE 20 MEQ TAB.ER.PRT PO ONE (10:30)
[2020-02-22] MEDS ORDERED: POTASSIUM CHLORIDE 20 MEQ TAB.ER.PRT PO SCH (17:00)
== END 2020-02-22 10:31 | disposition home or self-care (01) ==
LOC: ED 09:06
DX: K70.10 Alcoholic hepatitis without ascites (principal); K52.9 Noninfective gastroenteritis and colitis, unspecified; E87.6 Hypokalemia; R11.0 Nausea
CPT/HCPCS: 36415; 80053; 85025; 96361; 96374; 99283; J2405; J7030

== ENCOUNTER 2020-05-03 16:37 | Inpatient (IN) | payer MEDICAID ==
[~2020-05-03] VITALS: Ht 167.6 cm; Wt 69.8 kg
[2020-05-03] MEDS ORDERED: MAALOX/HYOSCYAMINE/LIDOCAINE 45 ML BTL PO ONE (18:30)
[2020-05-03 18:32] LABS: BASOPHILS % (AUTO) 1 % (0-1); EOSINOPHILS % (AUTO) 1 % (1-7); LYMPHOCYTES % (AUTO) 15 % (22-44); MEAN CORPUSCULAR HEMOGLOBIN 33.9 pg (27.0-34.8); MEAN CORPUSCULAR HGB CONC 34.6 g/dL (32.4-35.8); MEAN PLATELET VOLUME 7.6 fL (7.4-10.4); MONOCYTES % (AUTO) 7 % (2-9); NEUTROPHILS % (AUTO) 75 % (42-75); PLATELET COUNT 319 x10^3/uL (130-400); RED BLOOD COUNT 3.91 x10^6/uL (3.82-5.3)
[2020-05-03 18:34] LABS: MD MORPH REVIEW ONLY
[2020-05-03 18:37] LABS: ALANINE AMINOTRANSFERASE 61 U/L (12-78); ALBUMIN 3.2 g/dL (3.4-5.0); ANION GAP 9 mmol/L (5-15); CALCIUM 10.8 mg/dL (8.5-10.1); CHLORIDE 91 mmol/L (98-107)
[2020-05-03 18:42] LABS: ALKALINE PHOSPHATASE 304 U/L (45-117); BILIRUBIN,TOTAL 1.6 mg/dL (0.2-1.0); TOTAL PROTEIN 7.8 g/dL (6.4-8.2); TROPONIN I < 0.015 ng/mL (0.000-0.045)
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
[2020-05-03] MEDS ORDERED: MAALOX/HYOSCYAMINE/LIDOCAINE 45 ML BTL ONE (19:32)
[2020-05-03 19:56] LABS: <PLATELET ESTIMATE> ADEQUATE; <PLT MORPHOLOGY> NORMAL PLT MORPH; ANISOCYTOSIS 1+
[2020-05-03] MEDS ORDERED: POTASSIUM CHLORIDE 10% 40 MEQ/30 ML UDC PO ONE (20:00)
[2020-05-03] MEDS ORDERED: SODIUM CHLORIDE 0.9% 1,000ML IVBOLUS ONE (20:00)
[2020-05-03] MEDS ORDERED: SODIUM CHLORIDE FLUSH 10ML SYR IVF ONE (20:00)
--- NOTE | 2020-05-03 20:13 | NUR ---
PATIENT MEDICATED PER EMAR, TOLERATED WELL
[2020-05-03] MEDS ORDERED: LORazepam 2 MG/ML, 1ML ONE ×2 (21:24→23:52)
[2020-05-03] MEDS ORDERED: POTASSIUM CHLORIDE 40 MEQ in SODIUM CHLORIDE 0.9% 1,000 ML IV ONE ×2 (21:30→22:00)
[2020-05-03] MEDS ORDERED: LORazepam 2 MG/ML, 1ML IVPush ONE (21:30)
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
[2020-05-03] MEDS ORDERED: NS + 40MEQ KCL 1,000 ML IV ONE (21:48)
[2020-05-03] MEDS ORDERED: SODIUM CHLORIDE FLUSH 10ML SYR IVF PRN (22:00)
[2020-05-03] MEDS ORDERED: LORazepam 2 MG/ML, 1ML IVPush PRN (22:00)
--- NOTE | 2020-05-03 22:05 | NUR ---
IVF WITH K STARTED
[2020-05-03] MEDS ORDERED: PROMETHAZINE 25 MG/ML, 1ML IM PRN (23:00)
[2020-05-03] MEDS ORDERED: ONDANSETRON 2MG/ML, 2ML IVPush PRN (23:00)
[2020-05-03] MEDS ORDERED: ONDANSETRON ODT 4 MG PO PRN (23:00)
[2020-05-03] MEDS ORDERED: morphine SULFATE 10 MG/ML, 1ML IVPush PRN (23:00)
[2020-05-03] MEDS ORDERED: hydrALAzine 20 MG/ML, 1ML IVPush PRN (23:00)
[2020-05-03] MEDS ORDERED: POTASSIUM CHLORIDE 20 MEQ, MAGNESIUM SULFATE 2 GM, THIAMINE 200 MG, MVI ADULT 10 ML, FO... IV SCH (23:00)
[2020-05-03] MEDS ORDERED: LORazepam 2 MG/ML, 1ML IV PRN ×4 (23:30)
[2020-05-03] MEDS ORDERED: LORazepam 1MG TABLET PO PRN ×4 (23:30)
[2020-05-03] MEDS ORDERED: LORazepam 0.5MG TABLET PO PRN (23:30)
[2020-05-03] MEDS ORDERED: POTASSIUM CHLORIDE 40 MEQ in SODIUM CHLORIDE 0.9% 500 ML IV ONE (23:30)
[2020-05-03 23:54] LABS: FREE T4 (FREE THYROXINE) 1.3 ng/dL (0.76-1.46)
[2020-05-03] MEDS: LORazepam 2 MG/ML, 1ML IV PRN (23:57)
[2020-05-04] MEDS ORDERED: PROMETHAZINE 25 MG/ML, 1ML ONE (00:01)
[2020-05-04] MEDS ORDERED: LORazepam 2 MG/ML, 1ML ONE (00:17)
--- NOTE | 2020-05-04 00:27 | NUR ---
PATIENT MEDICATED PER EMAR ME CIWA SCALE AND TACHYCARDIA. PATIENT DESAT TO 89%, PLACED ON 2L NC, UP TO 95%. MONITORING IN PLACE, VSS, NADN
--- NOTE | 2020-05-04 00:44 | NUR ---
REPORT GIVEN TO JORDON GONZALEZ. PLAN OF CARE DISCUSSED. IVF WITH K RUNNING AT TIME OF TRANSFER
[2020-05-04 01:13] VITALS: BP 108/63
[2020-05-04] MEDS: PANTOPRAZOLE 40 MG IV IVPush SCH ×2 (03:41→15:50)
[2020-05-04 05:32] LABS: BASOPHILS % (AUTO) 1 % (0-1); EOSINOPHILS % (AUTO) 3 % (1-7); LYMPHOCYTES % (AUTO) 14 % (22-44); MEAN CORPUSCULAR HEMOGLOBIN 34.4 pg (27.0-34.8); MEAN CORPUSCULAR HGB CONC 34.3 g/dL (32.4-35.8); MEAN PLATELET VOLUME 7.7 fL (7.4-10.4); MONOCYTES % (AUTO) 8 % (2-9); NEUTROPHILS % (AUTO) 74 % (42-75); PLATELET COUNT 190 x10^3/uL (130-400); RED BLOOD COUNT 3.04 x10^6/uL (3.82-5.3); RED CELL DISTRIBUTION WIDTH 20.5 % (9.6-15.2)
[2020-05-04 05:38] LABS: MD NO
[2020-05-04 05:40] LABS: ALBUMIN 2.3 g/dL (3.4-5.0); ANION GAP 6 mmol/L (5-15); CALCIUM 8.8 mg/dL (8.5-10.1); CHLORIDE 105 mmol/L (98-107)
[2020-05-04 05:44] LABS: ALANINE AMINOTRANSFERASE 50 U/L (12-78); ALKALINE PHOSPHATASE 216 U/L (45-117); BILIRUBIN,TOTAL 1.8 mg/dL (0.2-1.0); CHOL/HDL RATIO 9.9; CHOLESTEROL, TOTAL 178 mg/dL (140-239); CREATININE 1.13 mg/dL (0.55-1.02); HDL CHOL % 10 % (28-40); HDL CHOLESTEROL (DIRECT) 18 mg/dL (40-60); LDL CHOLESTEROL,CALCULATED 110 mg/dL (54-169); LDL/HDL RATIO 6.1 (0.5-3.0); TOTAL PROTEIN 5.9 g/dL (6.4-8.2); TRIGLYCERIDES 250 mg/dL (50-200); VLDL CHOLESTEROL 50 mg/dL (0-25)
[2020-05-04 07:45] VITALS: BP 101/70
[2020-05-04] MEDS ORDERED: MAGNESIUM SULFATE PMX 2GM/50ML 50 ML IV ONE (08:00)
[2020-05-04] MEDS: FOLIC ACID 1 MG TABLET PO SCH (10:05)
[2020-05-04] MEDS: THIAMINE 100MG TABLET PO SCH (10:05)
[2020-05-04 12:17] VITALS: BP 117/80
[2020-05-04] MEDS: POTASSIUM CHLORIDE 20 MEQ, MAGNESIUM SULFATE 2 GM, THIAMINE 200 MG, MVI ADULT 10 ML, FO... IV SCH (12:52)
[2020-05-04 14:06] LABS: MICROSCOPIC INDICATED
[2020-05-04] MEDS: LORazepam 2 MG/ML, 1ML IV PRN ×2 (16:03→21:01)
[2020-05-04 19:53] VITALS: BP 132/83
[2020-05-05 01:20] VITALS: BP 128/87
[2020-05-05 01:53] LABS: OCCULT BLOOD NEGATIVE (NEGATIVE)
[2020-05-05] MEDS: PANTOPRAZOLE 40 MG IV IVPush SCH (03:34)
[2020-05-05] MEDS: LORazepam 2 MG/ML, 1ML IV PRN (03:45)
[2020-05-05 05:05] LABS: BASOPHILS % (AUTO) 1 % (0-1); EOSINOPHILS % (AUTO) 4 % (1-7); LYMPHOCYTES % (AUTO) 14 % (22-44); MEAN CORPUSCULAR HEMOGLOBIN 34.7 pg (27.0-34.8); MEAN CORPUSCULAR HGB CONC 34.3 g/dL (32.4-35.8); MONOCYTES % (AUTO) 7 % (2-9); NEUTROPHILS % (AUTO) 75 % (42-75); PLATELET COUNT 158 x10^3/uL (130-400); RED BLOOD COUNT 2.88 x10^6/uL (3.82-5.3); RED CELL DISTRIBUTION WIDTH 20.1 % (9.6-15.2)
[2020-05-05 05:15] LABS: CALCIUM 8.2 mg/dL (8.5-10.1); CHLORIDE 111 mmol/L (98-107)
[2020-05-05 05:17] LABS: ANION GAP 8 mmol/L (5-15); CREATININE 0.97 mg/dL (0.55-1.02); MD NO
[2020-05-05 07:22] VITALS: BP 122/80
[2020-05-05] MEDS: THIAMINE 100MG TABLET PO SCH (08:49)
[2020-05-05] MEDS: FOLIC ACID 1 MG TABLET PO SCH (08:50)
[2020-05-05] MEDS: OXYcodone IR 5MG TABLET PO PRN (08:55)
[2020-05-05 10:44] LABS: OCCULT BLOOD NEGATIVE (NEGATIVE)
[2020-05-05 12:01] VITALS: BP 113/69
[2020-05-05] MEDS: POTASSIUM CHLORIDE 20 MEQ, MAGNESIUM SULFATE 2 GM, THIAMINE 200 MG, MVI ADULT 10 ML, FO... IV SCH (12:15)
[2020-05-05 19:15] VITALS: BP 119/70
[2020-05-05] MEDS: PANTOPRAZOLE 40MG TABLET PO SCH (21:06)
[2020-05-06 00:09] VITALS: BP 123/82
[2020-05-06 06:12] LABS: BASOPHILS % (AUTO) 1 % (0-1); EOSINOPHILS % (AUTO) 4 % (1-7); LYMPHOCYTES % (AUTO) 13 % (22-44); MEAN CORPUSCULAR HEMOGLOBIN 34.9 pg (27.0-34.8); MEAN PLATELET VOLUME 8.2 fL (7.4-10.4); MONOCYTES % (AUTO) 7 % (2-9); NEUTROPHILS % (AUTO) 75 % (42-75); PLATELET COUNT 148 x10^3/uL (130-400); RED BLOOD COUNT 2.76 x10^6/uL (3.82-5.3); RED CELL DISTRIBUTION WIDTH 19.8 % (9.6-15.2)
[2020-05-06 06:16] LABS: CHLORIDE 112 mmol/L (98-107)
[2020-05-06 06:24] LABS: ALANINE AMINOTRANSFERASE 40 U/L (12-78); ALBUMIN 2.3 g/dL (3.4-5.0); ALKALINE PHOSPHATASE 208 U/L (45-117); ANION GAP 9 mmol/L (5-15); BILIRUBIN,TOTAL 3.9 mg/dL (0.2-1.0); CALCIUM 7.8 mg/dL (8.5-10.1); CREATININE 0.74 mg/dL (0.55-1.02); TOTAL PROTEIN 5.7 g/dL (6.4-8.2)
[2020-05-06 06:43] VITALS: BP 110/74
[2020-05-06 06:49] LABS: MD NO
[2020-05-06] MEDS ORDERED: FOLI-17 PO (08:10)
[2020-05-06] MEDS ORDERED: THIA100T67 PO (08:10)
[2020-05-06] MEDS: FOLIC ACID 1 MG TABLET PO SCH (08:29)
[2020-05-06] MEDS: PANTOPRAZOLE 40MG TABLET PO SCH (08:29)
[2020-05-06] MEDS: THIAMINE 100MG TABLET PO SCH (08:29)
[2020-05-06] MEDS ORDERED: MAGNESIUM SULFATE PMX 2GM/50ML 50 ML IV ONE (08:30)
[2020-05-06] MEDS: OXYcodone IR 5MG TABLET PO PRN (11:29)
[2020-05-06] MEDS: POTASSIUM CHLORIDE 20 MEQ, MAGNESIUM SULFATE 2 GM, THIAMINE 200 MG, MVI ADULT 10 ML, FO... IV SCH (12:00)
[2020-05-06 12:02] VITALS: BP 123/85
== END 2020-05-06 12:46 | disposition home or self-care (01) | DRG 392 ==
LOC: ED 21:55 → EDIP 22:24 → 4WST 05-04 01:00 → DCLOUNGE 05-06 12:40
PROVIDERS: ADMIT Internal Medicine; ATTEND Internal Medicine Infectious Disease
DX: K29.20 Alcoholic gastritis without bleeding (principal); E87.1 Hypo-osmolality and hyponatremia; F10.239 Alcohol dependence with withdrawal, unspecified; D53.9 Nutritional anemia, unspecified; E78.5 Hyperlipidemia, unspecified; E83.42 Hypomagnesemia; E86.0 Dehydration; E87.6 Hypokalemia; F32.9 Major depressive disorder, single episode, unspecified; I10 Essential (primary) hypertension; K70.9 Alcoholic liver disease, unspecified; Z82.49 Family history of ischemic heart disease and other diseases of the circulatory system; Z83.3 Family history of diabetes mellitus; Z90.721 Acquired absence of ovaries, unilateral; Z91.19 Patient's noncompliance with other medical treatment and regimen
CPT/HCPCS: 36415; J7042; 76700; 80048; 80053; 80061; 80074; 81001; 82272; 82607; 82728; 83036; 83540; 83550; 83690; 83735; 84100; 84439; 84443; 84484; 85018; 85025; 87077; 87086; 87186; 93005; G0378; J2550; J3411; J3475; J3480; C9113; J2060; J7030; J7040

== ENCOUNTER 2020-05-12 18:39 | Emergency (ER) | payer MEDICAID ==
[~2020-05-12] VITALS: Ht 167.6 cm; Wt 75.6 kg
[2020-05-12 19:05] VITALS: BP 113/75
[2020-05-12] MEDS ORDERED: SODIUM CHLORIDE FLUSH 10ML SYR IVF ONE (19:30)
--- NOTE | 2020-05-12 19:48 | NUR ---
pt to room from lobby
--- NOTE | 2020-05-12 19:50 | NUR ---
called, not in lobby
--- NOTE | 2020-05-12 20:10 | NUR ---
not in lobby
--- NOTE | 2020-05-12 20:47 | NUR ---
not in lobby
== END 2020-05-12 20:51 | disposition left against medical advice (07) ==
LOC: ED 18:59
DX: R10.31 Right lower quadrant pain (principal); R11.2 Nausea with vomiting, unspecified; R68.83 Chills (without fever)
CPT/HCPCS: 99281

== ENCOUNTER 2020-05-13 06:11 | Emergency (ER) | payer MEDICAID ==
[~2020-05-13] VITALS: Ht 167.6 cm; Wt 75.6 kg
--- NOTE | 2020-05-13 06:51 | NUR ---
REPORT RECEIVED FROM JORDON CARSON
[2020-05-13] MEDS ORDERED: ONDANSETRON 2MG/ML, 2ML ONE ×2 (07:26→10:53)
[2020-05-13] MEDS ORDERED: ONDANSETRON 2MG/ML, 2ML IVPush ONE ×2 (07:30→11:00)
[2020-05-13] MEDS ORDERED: SODIUM CHLORIDE FLUSH 10ML SYR IVF ONE (07:30)
[2020-05-13] MEDS ORDERED: SODIUM CHLORIDE 0.9% 1,000ML IVBOLUS ONE ×2 (07:30→10:00)
[2020-05-13 08:28] LABS: BASOPHILS % (AUTO) 1 % (0-1); EOSINOPHILS % (AUTO) 2 % (1-7); LYMPHOCYTES % (AUTO) 13 % (22-44); MEAN CORPUSCULAR HEMOGLOBIN 35.2 pg (27.0-34.8); MEAN CORPUSCULAR HGB CONC 34.1 g/dL (32.4-35.8); MEAN PLATELET VOLUME 8.1 fL (7.4-10.4); MONOCYTES % (AUTO) 8 % (2-9); NEUTROPHILS % (AUTO) 77 % (42-75); PLATELET COUNT 313 x10^3/uL (130-400); RED BLOOD COUNT 2.97 x10^6/uL (3.82-5.3); RED CELL DISTRIBUTION WIDTH 19.4 % (9.6-15.2)
[2020-05-13 08:36] LABS: ALANINE AMINOTRANSFERASE 46 U/L (12-78); ALBUMIN 2.6 g/dL (3.4-5.0); ANION GAP 10 mmol/L (5-15); CALCIUM 8.5 mg/dL (8.5-10.1); CHLORIDE 106 mmol/L (98-107)
[2020-05-13 08:37] LABS: MD NO
--- NOTE | 2020-05-13 08:37 | NUR ---
PT BIB AMBULANCE C/O RIGHT UPPER ABD AND RIGHT UPPER BACK PAIN. PAIN 7/10. PT HAS A HX OF ALCOHOLISM. PER PT SHE NORMALLY DRINKS 375 ML OF [place]NIER A DAY. YELLOW SCELRA AND SKIN TONED NOTED.
[2020-05-13 08:38] LABS: ALKALINE PHOSPHATASE 230 U/L (45-117); BILIRUBIN,TOTAL 3.7 mg/dL (0.2-1.0); TOTAL PROTEIN 7.1 g/dL (6.4-8.2)
[2020-05-13] MEDS ORDERED: LORazepam 2 MG/ML, 1ML ONE (08:48)
[2020-05-13 08:51] LABS: MICROSCOPIC INDICATED
--- NOTE | 2020-05-13 08:53 | NUR ---
PT MEDICATED PER MAR
[2020-05-13] MEDS ORDERED: LORazepam 2 MG/ML, 1ML IVPush ONE (09:00)
[2020-05-13] MEDS ORDERED: POTASSIUM CHLORIDE 20 MEQ PACKET PO ONE (10:00)
[2020-05-13] MEDS ORDERED: POTASSIUM CHLORIDE 20 MEQ PACKET ONE (10:31)
--- NOTE | 2020-05-13 10:54 | NUR ---
SPOKE WITH DR CASTRO ABOUT PT NAUSEA. ADVISED SHE RECEIVED 4MG IV AT 0800. VERBALLY STATED THE PT COUD HAVE 4MG MORE OF ZOFRAN.
--- NOTE | 2020-05-13 10:57 | NUR ---
PT GIVEN 4MG ZOFRAN VIA IV PER DR GOLDMAN VERBAL ORDER.
[2020-05-13 11:59] LABS: ANION GAP 11 mmol/L (5-15); CALCIUM 7.6 mg/dL (8.5-10.1); CHLORIDE 112 mmol/L (98-107); CREATININE 2.03 mg/dL (0.55-1.02)
[2020-05-13 13:49] VITALS: BP 128/93
--- NOTE | 2020-05-13 14:04 | NUR ---
PT REC'VD DISCHARGE INSTRUCTIONS AND EDUCATION. PT HAD NO FURTHER QUESTIONS. PT GIVEN TAXI VOUCHER. PT AMBULATED TO DC DESK, STEADY GAIT.
== END 2020-05-13 07:35 | disposition home or self-care (01) ==
LOC: ED 07:29
DX: N30.00 Acute cystitis without hematuria (principal); E87.6 Hypokalemia; N28.9 Disorder of kidney and ureter, unspecified; K70.0 Alcoholic fatty liver; R10.31 Right lower quadrant pain; R10.11 Right upper quadrant pain; F10.20 Alcohol dependence, uncomplicated; I10 Essential (primary) hypertension; Z87.891 Personal history of nicotine dependence; Y90.9 Presence of alcohol in blood, level not specified
CPT/HCPCS: 36415; 74021; 80048; 80053; 81001; 83690; 85025; 87086; 96361; 96374; 96375; 96376; 99284; J2060; J2405; J7030

== ENCOUNTER 2020-05-19 17:41 | Inpatient (IN) | payer MEDICAID ==
[~2020-05-19] VITALS: Ht 167.6 cm; Wt 72.4 kg
[2020-05-19 18:25] LABS: ALANINE AMINOTRANSFERASE 35 U/L (12-78); ALBUMIN 2.4 g/dL (3.4-5.0); ANION GAP 10 mmol/L (5-15); CALCIUM 7.8 mg/dL (8.5-10.1); CHLORIDE 112 mmol/L (98-107)
--- NOTE | 2020-05-19 18:26 | NUR ---
PT TO ROOM FROM LOBBY
[2020-05-19 18:30] LABS: ALKALINE PHOSPHATASE 209 U/L (45-117); BILIRUBIN,TOTAL 4.8 mg/dL (0.2-1.0); TOTAL PROTEIN 6.7 g/dL (6.4-8.2); TROPONIN I 0.096 ng/mL (0.000-0.045)
[2020-05-19 18:45] LABS: BASOPHILS % (AUTO) 1 % (0-1); EOSINOPHILS % (AUTO) 3 % (1-7); LYMPHOCYTES % (AUTO) 13 % (22-44); MEAN CORPUSCULAR HEMOGLOBIN 35.7 pg (27.0-34.8); MEAN CORPUSCULAR HGB CONC 33.8 g/dL (32.4-35.8); MEAN PLATELET VOLUME 8.2 fL (7.4-10.4); MONOCYTES % (AUTO) 10 % (2-9); NEUTROPHILS % (AUTO) 73 % (42-75); PLATELET COUNT 309 x10^3/uL (130-400); RED BLOOD COUNT 2.92 x10^6/uL (3.82-5.3); RED CELL DISTRIBUTION WIDTH 18.4 % (9.6-15.2)
[2020-05-19 18:53] LABS: MD NO
[2020-05-19] MEDS ORDERED: SODIUM CHLORIDE 0.9%, 500ML IVBOLUS ONE (19:00)
--- NOTE | 2020-05-19 19:26 | NUR ---
assumed care of pt at this time
[2020-05-19 19:38] LABS: FREE T4 (FREE THYROXINE) 1.15 ng/dL (0.76-1.46)
--- NOTE | 2020-05-19 19:40 | NUR ---
PIV PLACED PT ON ALL MONITORS IN NAD DAUGHTER AT BEDSIDE
--- NOTE | 2020-05-19 20:51 | NUR ---
PT TO BE ADMITTED AT THIS TIME
--- NOTE | 2020-05-19 20:59 | NUR ---
PT TO CT AT THIS TIME
--- NOTE | 2020-05-19 22:06 | NUR ---
REPORT TO NATACHA PT TO ROOM WITH TECH
[2020-05-19 22:29] VITALS: BP 113/75
[2020-05-19] MEDS ORDERED: ONDANSETRON 2MG/ML, 2ML IVPush PRN (22:30)
[2020-05-19] MEDS ORDERED: ONDANSETRON ODT 4 MG PO PRN (22:30)
[2020-05-19] MEDS ORDERED: PROMETHAZINE 25 MG/ML, 1ML IM PRN (22:30)
[2020-05-19] MEDS ORDERED: LABETALOL 5MG/ML, 20ML IVPush PRN (22:30)
[2020-05-19] MEDS ORDERED: OXYcodone IR 5MG TABLET PO PRN (22:30)
[2020-05-19] MEDS ORDERED: POTASSIUM CHLORIDE 20 MEQ TAB.ER.PRT PO ONE (23:00)
[2020-05-19] MEDS: LACTULOSE 20 GM/30 ML UDC PO SCH (23:15)
[2020-05-19] MEDS: ENOXAPARIN 40 MG/0.4 ML SQ SCH (23:15)
[2020-05-20 02:00] VITALS: BP 109/63
[2020-05-20 03:09] LABS: TROPONIN I 0.071 ng/mL (0.000-0.045)
[2020-05-20] MEDS: CALCIUM CARBONATE 500 MG TAB.CHEW PO PRN (03:25)
[2020-05-20 06:25] LABS: BASOPHILS % (AUTO) 1 % (0-1); EOSINOPHILS % (AUTO) 3 % (1-7); LYMPHOCYTES % (AUTO) 13 % (22-44); MEAN CORPUSCULAR HEMOGLOBIN 35.4 pg (27.0-34.8); MEAN CORPUSCULAR HGB CONC 33.5 g/dL (32.4-35.8); MEAN PLATELET VOLUME 7.9 fL (7.4-10.4); MONOCYTES % (AUTO) 11 % (2-9); NEUTROPHILS % (AUTO) 72 % (42-75); PLATELET COUNT 303 x10^3/uL (130-400); RED CELL DISTRIBUTION WIDTH 18.1 % (9.6-15.2)
[2020-05-20 06:26] LABS: CHLORIDE 116 mmol/L (98-107)
[2020-05-20 06:43] LABS: ALANINE AMINOTRANSFERASE 35 U/L (12-78); ALBUMIN 2.4 g/dL (3.4-5.0); ALKALINE PHOSPHATASE 202 U/L (45-117); ANION GAP 9 mmol/L (5-15); BILIRUBIN,TOTAL 5.2 mg/dL (0.2-1.0); CALCIUM 7.9 mg/dL (8.5-10.1); CHOL/HDL RATIO 17.3; CHOLESTEROL, TOTAL 207 mg/dL (140-239); CREATININE 0.88 mg/dL (0.55-1.02); HDL CHOL % 6 % (28-40); HDL CHOLESTEROL (DIRECT) 12 mg/dL (40-60); LDL CHOLESTEROL,CALCULATED 154 mg/dL (54-169); LDL/HDL RATIO 12.8 (0.5-3.0); TOTAL PROTEIN 6.7 g/dL (6.4-8.2); TRIGLYCERIDES 206 mg/dL (50-200); TROPONIN I 0.065 ng/mL (0.000-0.045); VLDL CHOLESTEROL 41 mg/dL (0-25)
[2020-05-20 06:56] LABS: MD NO
[2020-05-20 08:00] VITALS: BP 122/82
[2020-05-20] MEDS ORDERED: POTASSIUM CHLORIDE 20 MEQ TAB.ER.PRT PO ONE (08:30)
[2020-05-20 08:47] VITALS: BP 106/72
[2020-05-20] MEDS: LACTULOSE 20 GM/30 ML UDC PO SCH ×2 (08:52→21:00)
[2020-05-20] MEDS: THIAMINE 100MG TABLET PO SCH (08:53)
[2020-05-20] MEDS: FOLIC ACID 1 MG TABLET PO SCH (08:53)
[2020-05-20] MEDS: ASPIRIN 325 MG TABLET EC PO SCH (08:53)
[2020-05-20] MEDS: SERTRALINE 50MG TABLET PO SCH (08:53)
[2020-05-20] MEDS ORDERED: THIAMINE 200 MG in SODIUM CHLORIDE 0.9% 50 ML IV ONE (09:30)
[2020-05-20] MEDS: RIFAXIMIN 200 MG TABLET PO SCH ×3 (11:23→23:07)
[2020-05-20 12:26] LABS: CLOSTRIDIUM DIFFICILE ANTIGEN NEGATIVE; CLOSTRIDIUM DIFFICILE TOXIN NEGATIVE (Negative)
[2020-05-20 13:44] VITALS: BP 114/80
[2020-05-20 20:06] VITALS: BP 123/82
[2020-05-20] MEDS: ENOXAPARIN 40 MG/0.4 ML SQ SCH (23:08)
[2020-05-20 23:41] LABS: MICROSCOPIC INDICATED
[2020-05-21 01:19] VITALS: BP 115/80
[2020-05-21] MEDS: CALCIUM CARBONATE 500 MG TAB.CHEW PO PRN (02:33)
[2020-05-21] MEDS ORDERED: CEFTRIAXONE PMX 1GM/50ML 50 ML IV ONE (05:00)
[2020-05-21 05:50] LABS: BASOPHILS % (AUTO) 1 % (0-1); EOSINOPHILS % (AUTO) 3 % (1-7); LYMPHOCYTES % (AUTO) 14 % (22-44); MD NO; MEAN CORPUSCULAR HEMOGLOBIN 36.3 pg (27.0-34.8); MEAN CORPUSCULAR HGB CONC 34.2 g/dL (32.4-35.8); MEAN PLATELET VOLUME 8.4 fL (7.4-10.4); MONOCYTES % (AUTO) 11 % (2-9); NEUTROPHILS % (AUTO) 71 % (42-75); PLATELET COUNT 261 x10^3/uL (130-400); RED BLOOD COUNT 2.68 x10^6/uL (3.82-5.3); RED CELL DISTRIBUTION WIDTH 17.4 % (9.6-15.2)
[2020-05-21 05:59] LABS: ALBUMIN 2.2 g/dL (3.4-5.0); ANION GAP 8 mmol/L (5-15); CHLORIDE 117 mmol/L (98-107)
[2020-05-21] MEDS: ASPIRIN 325 MG TABLET EC PO SCH (06:01)
[2020-05-21 06:04] LABS: ALANINE AMINOTRANSFERASE 30 U/L (12-78); ALKALINE PHOSPHATASE 178 U/L (45-117); BILIRUBIN,TOTAL 4.3 mg/dL (0.2-1.0); CREATININE 0.82 mg/dL (0.55-1.02); TOTAL PROTEIN 6.2 g/dL (6.4-8.2)
[2020-05-21 08:00] VITALS: BP 128/82
[2020-05-21] MEDS: LACTULOSE 20 GM/30 ML UDC PO SCH ×2 (09:00→21:00)
[2020-05-21] MEDS ORDERED: MAGNESIUM SULFATE PMX 2GM/50ML 50 ML IV ONE (09:30)
[2020-05-21] MEDS: THIAMINE 100MG TABLET PO SCH (10:07)
[2020-05-21] MEDS: RIFAXIMIN 200 MG TABLET PO SCH ×3 (10:07→21:40)
[2020-05-21] MEDS: FOLIC ACID 1 MG TABLET PO SCH (10:07)
[2020-05-21] MEDS: SERTRALINE 50MG TABLET PO SCH (10:07)
[2020-05-21 13:31] VITALS: BP 137/90
[2020-05-21 18:50] VITALS: BP 139/88
[2020-05-21] MEDS: ENOXAPARIN 40 MG/0.4 ML SQ SCH (21:39)
[2020-05-22 01:48] VITALS: BP 132/86
[2020-05-22] MEDS: ASPIRIN 325 MG TABLET EC PO SCH (05:06)
[2020-05-22 07:06] LABS: BASOPHILS % (AUTO) 1 % (0-1); EOSINOPHILS % (AUTO) 3 % (1-7); LYMPHOCYTES % (AUTO) 20 % (22-44); MEAN CORPUSCULAR HEMOGLOBIN 35.5 pg (27.0-34.8); MEAN CORPUSCULAR HGB CONC 33.7 g/dL (32.4-35.8); MONOCYTES % (AUTO) 9 % (2-9); NEUTROPHILS % (AUTO) 67 % (42-75); PLATELET COUNT 281 x10^3/uL (130-400); RED BLOOD COUNT 2.54 x10^6/uL (3.82-5.3); RED CELL DISTRIBUTION WIDTH 17.4 % (9.6-15.2)
[2020-05-22 07:13] LABS: MD NO
[2020-05-22 07:15] LABS: ANION GAP 8 mmol/L (5-15); CALCIUM 7.7 mg/dL (8.5-10.1); CHLORIDE 116 mmol/L (98-107)
[2020-05-22 07:21] LABS: ALANINE AMINOTRANSFERASE 28 U/L (12-78); ALKALINE PHOSPHATASE 158 U/L (45-117); CREATININE 0.72 mg/dL (0.55-1.02); TOTAL PROTEIN 5.7 g/dL (6.4-8.2)
[2020-05-22 08:34] VITALS: BP 147/96
[2020-05-22] MEDS ORDERED: CEFTRIAXONE PMX 1GM/50ML 50 ML IV SCH (09:00)
[2020-05-22] MEDS: LACTULOSE 20 GM/30 ML UDC PO SCH ×2 (09:16→21:00)
[2020-05-22] MEDS: RIFAXIMIN 200 MG TABLET PO SCH ×3 (09:17→22:19)
[2020-05-22] MEDS: THIAMINE 100MG TABLET PO SCH (09:18)
[2020-05-22] MEDS: FOLIC ACID 1 MG TABLET PO SCH (09:18)
[2020-05-22] MEDS: SERTRALINE 50MG TABLET PO SCH (09:18)
[2020-05-22 14:58] VITALS: BP 133/81
[2020-05-22 21:59] VITALS: BP 112/77
[2020-05-22] MEDS: ENOXAPARIN 40 MG/0.4 ML SQ SCH (22:30)
[2020-05-23 01:18] VITALS: BP 114/78
[2020-05-23] MEDS: ASPIRIN 325 MG TABLET EC PO SCH (05:09)
[2020-05-23 07:06] VITALS: BP 112/76
[2020-05-23] MEDS: LACTULOSE 20 GM/30 ML UDC PO SCH ×2 (08:27→21:00)
[2020-05-23] MEDS: FOLIC ACID 1 MG TABLET PO SCH (08:41)
[2020-05-23] MEDS: SERTRALINE 50MG TABLET PO SCH (08:41)
[2020-05-23] MEDS: METOPROLOL TARTRATE 25 MG TAB PO SCH ×2 (08:42→16:56)
[2020-05-23] MEDS: RIFAXIMIN 200 MG TABLET PO SCH ×3 (08:42→22:18)
[2020-05-23] MEDS: THIAMINE 100MG TABLET PO SCH (08:42)
[2020-05-23 12:51] VITALS: BP 129/83
[2020-05-23 20:36] VITALS: BP 125/77
[2020-05-23] MEDS: ENOXAPARIN 40 MG/0.4 ML SQ SCH (22:19)
[2020-05-24 02:02] VITALS: BP 129/87
[2020-05-24 06:16] LABS: BASOPHILS % (AUTO) 1 % (0-1); EOSINOPHILS % (AUTO) 2 % (1-7); LYMPHOCYTES % (AUTO) 12 % (22-44); MEAN CORPUSCULAR HEMOGLOBIN 35.3 pg (27.0-34.8); MEAN CORPUSCULAR HGB CONC 33.6 g/dL (32.4-35.8); MEAN PLATELET VOLUME 8.3 fL (7.4-10.4); MONOCYTES % (AUTO) 7 % (2-9); NEUTROPHILS % (AUTO) 78 % (42-75); PLATELET COUNT 303 x10^3/uL (130-400); RED CELL DISTRIBUTION WIDTH 16.3 % (9.6-15.2)
[2020-05-24 06:21] LABS: MD NO
[2020-05-24 06:25] LABS: ALBUMIN 2.2 g/dL (3.4-5.0); ANION GAP 10 mmol/L (5-15); CALCIUM 8.2 mg/dL (8.5-10.1); CHLORIDE 115 mmol/L (98-107)
[2020-05-24 06:30] LABS: ALANINE AMINOTRANSFERASE 30 U/L (12-78); ALKALINE PHOSPHATASE 167 U/L (45-117); BILIRUBIN,TOTAL 3.6 mg/dL (0.2-1.0); CREATININE 0.78 mg/dL (0.55-1.02); TOTAL PROTEIN 6.1 g/dL (6.4-8.2)
[2020-05-24] MEDS: ASPIRIN 325 MG TABLET EC PO SCH (06:38)
[2020-05-24] MEDS: METOPROLOL TARTRATE 25 MG TAB PO SCH ×2 (06:40→17:19)
[2020-05-24 06:44] VITALS: BP 138/86
[2020-05-24] MEDS ORDERED: POTASSIUM CHLORIDE 20 MEQ TAB.ER.PRT PO ONE (08:00)
[2020-05-24] MEDS: FOLIC ACID 1 MG TABLET PO SCH (09:00)
[2020-05-24] MEDS: RIFAXIMIN 200 MG TABLET PO SCH ×3 (09:31→22:34)
[2020-05-24] MEDS: LACTULOSE 20 GM/30 ML UDC PO SCH ×2 (09:32→22:34)
[2020-05-24] MEDS: THIAMINE 100MG TABLET PO SCH (09:46)
[2020-05-24] MEDS: SERTRALINE 50MG TABLET PO SCH (09:46)
[2020-05-24 12:25] VITALS: BP 131/87
[2020-05-24 18:47] VITALS: BP 117/80
[2020-05-24] MEDS: ENOXAPARIN 40 MG/0.4 ML SQ SCH (22:34)
[2020-05-24] MEDS: IBUPROFEN 600 MG TABLET PO PRN (22:36)
[2020-05-25 01:11] VITALS: BP 132/82
[2020-05-25 05:31] LABS: BASOPHILS % (AUTO) 1 % (0-1); EOSINOPHILS % (AUTO) 2 % (1-7); LYMPHOCYTES % (AUTO) 16 % (22-44); MEAN CORPUSCULAR HEMOGLOBIN 35.3 pg (27.0-34.8); MEAN CORPUSCULAR HGB CONC 33.8 g/dL (32.4-35.8); MEAN PLATELET VOLUME 8.9 fL (7.4-10.4); MONOCYTES % (AUTO) 7 % (2-9); NEUTROPHILS % (AUTO) 74 % (42-75); PLATELET COUNT 271 x10^3/uL (130-400); RED BLOOD COUNT 2.82 x10^6/uL (3.82-5.3); RED CELL DISTRIBUTION WIDTH 16.1 % (9.6-15.2)
[2020-05-25 05:37] LABS: ALBUMIN 2.1 g/dL (3.4-5.0); ANION GAP 9 mmol/L (5-15); CHLORIDE 116 mmol/L (98-107)
[2020-05-25 05:42] LABS: ALANINE AMINOTRANSFERASE 26 U/L (12-78); ALKALINE PHOSPHATASE 162 U/L (45-117); BILIRUBIN,TOTAL 3.5 mg/dL (0.2-1.0); CREATININE 0.72 mg/dL (0.55-1.02); TOTAL PROTEIN 5.9 g/dL (6.4-8.2)
[2020-05-25 05:43] LABS: MD NO
[2020-05-25] MEDS: ASPIRIN 325 MG TABLET EC PO SCH (05:49)
[2020-05-25] MEDS: METOPROLOL TARTRATE 25 MG TAB PO SCH ×2 (05:53→17:43)
[2020-05-25] MEDS ORDERED: POTASSIUM CHLORIDE 20 MEQ TAB.ER.PRT PO ONE (08:00)
[2020-05-25] MEDS: LACTULOSE 20 GM/30 ML UDC PO SCH ×2 (09:00→20:19)
[2020-05-25] MEDS: FOLIC ACID 1 MG TABLET PO SCH (09:26)
[2020-05-25] MEDS: THIAMINE 100MG TABLET PO SCH (09:27)
[2020-05-25] MEDS: SERTRALINE 50MG TABLET PO SCH (09:27)
[2020-05-25] MEDS: RIFAXIMIN 200 MG TABLET PO SCH ×3 (09:28→20:53)
[2020-05-25 10:58] VITALS: BP 94/57
[2020-05-25 12:14] VITALS: BP 111/75
[2020-05-25 19:23] VITALS: BP 116/82
[2020-05-25] MEDS: ENOXAPARIN 40 MG/0.4 ML SQ SCH (20:19)
[2020-05-25] MEDS: IBUPROFEN 600 MG TABLET PO PRN (20:36)
[2020-05-26 03:20] VITALS: BP 105/71
[2020-05-26 06:30] LABS: BASOPHILS % (AUTO) 1 % (0-1); EOSINOPHILS % (AUTO) 2 % (1-7); LYMPHOCYTES % (AUTO) 14 % (22-44); MEAN CORPUSCULAR HEMOGLOBIN 34.7 pg (27.0-34.8); MEAN CORPUSCULAR HGB CONC 33.4 g/dL (32.4-35.8); MEAN PLATELET VOLUME 8.9 fL (7.4-10.4); MONOCYTES % (AUTO) 8 % (2-9); NEUTROPHILS % (AUTO) 75 % (42-75); PLATELET COUNT 232 x10^3/uL (130-400); RED BLOOD COUNT 2.82 x10^6/uL (3.82-5.3); RED CELL DISTRIBUTION WIDTH 16.3 % (9.6-15.2)
[2020-05-26] MEDS: ASPIRIN 325 MG TABLET EC PO SCH (06:31)
[2020-05-26] MEDS: METOPROLOL TARTRATE 25 MG TAB PO SCH ×2 (06:31→17:57)
[2020-05-26 06:39] LABS: CHLORIDE 116 mmol/L (98-107)
[2020-05-26 06:48] LABS: ANION GAP 6 mmol/L (5-15); CALCIUM 7.8 mg/dL (8.5-10.1); CREATININE 0.67 mg/dL (0.55-1.02)
[2020-05-26 06:52] LABS: MD NO
[2020-05-26 07:45] VITALS: BP 107/73
[2020-05-26] MEDS: SERTRALINE 50MG TABLET PO SCH (08:21)
[2020-05-26] MEDS: THIAMINE 100MG TABLET PO SCH (08:21)
[2020-05-26] MEDS: FOLIC ACID 1 MG TABLET PO SCH (08:21)
[2020-05-26] MEDS: LACTULOSE 20 GM/30 ML UDC PO SCH ×3 (08:21→20:51)
[2020-05-26] MEDS: RIFAXIMIN 200 MG TABLET PO SCH ×3 (08:25→20:51)
[2020-05-26 15:39] VITALS: BP 120/83
[2020-05-26 18:02] VITALS: BP 124/82
[2020-05-26 20:08] VITALS: BP 101/65
[2020-05-26] MEDS: IBUPROFEN 600 MG TABLET PO PRN (20:56)
[2020-05-26] MEDS: ENOXAPARIN 40 MG/0.4 ML SQ SCH (22:30)
[2020-05-26] MEDS: CALCIUM CARBONATE 500 MG TAB.CHEW PO PRN (23:01)
[2020-05-27 00:28] VITALS: BP 112/72
[2020-05-27 05:20] VITALS: BP 110/71
[2020-05-27] MEDS: ASPIRIN 325 MG TABLET EC PO SCH (05:21)
[2020-05-27] MEDS: METOPROLOL TARTRATE 25 MG TAB PO SCH (05:21)
[2020-05-27] MEDS: FOLIC ACID 1 MG TABLET PO SCH (08:00)
[2020-05-27] MEDS: RIFAXIMIN 200 MG TABLET PO SCH ×2 (08:00→15:43)
[2020-05-27] MEDS: SERTRALINE 50MG TABLET PO SCH (08:00)
[2020-05-27] MEDS: LACTULOSE 20 GM/30 ML UDC PO SCH ×2 (08:00→15:43)
[2020-05-27] MEDS: THIAMINE 100MG TABLET PO SCH (08:00)
[2020-05-27 08:22] VITALS: BP 117/81
[2020-05-27 09:16] LABS: ALANINE AMINOTRANSFERASE 30 U/L (12-78); ALBUMIN 2.4 g/dL (3.4-5.0); ANION GAP 9 mmol/L (5-15); CALCIUM 8.4 mg/dL (8.5-10.1); CHLORIDE 116 mmol/L (98-107)
[2020-05-27 09:18] LABS: ALKALINE PHOSPHATASE 178 U/L (45-117); BILIRUBIN,TOTAL 3.8 mg/dL (0.2-1.0); TOTAL PROTEIN 6.7 g/dL (6.4-8.2)
[2020-05-27] MEDS ORDERED: LACT20SO13 PO (12:49)
[2020-05-27] MEDS ORDERED: METO25TA35 PO (12:49)
[2020-05-27] MEDS ORDERED: THIA100T67 PO (12:49)
[2020-05-27] MEDS ORDERED: IBUP-1222 PO (12:49)
[2020-05-27] MEDS ORDERED: RIFA200T5 PO (12:49)
[2020-05-27] MEDS: CALCIUM CARBONATE 500 MG TAB.CHEW PO PRN (14:20)
[2020-05-27 14:36] VITALS: BP 115/79
== END 2020-05-27 16:27 | DRG 432 ==
LOC: ED 18:51 → EDIP 21:29 → 5SO 22:33 → 3WST 05-25 12:42 → 3N 05-25 17:13
PROVIDERS: ADMIT Internal Medicine; ATTEND Internal Medicine
DX: K70.40 Alcoholic hepatic failure without coma (principal); G93.41 Metabolic encephalopathy; E72.20 Disorder of urea cycle metabolism, unspecified; I47.1 Supraventricular tachycardia; D64.9 Anemia, unspecified; E03.9 Hypothyroidism, unspecified; Z20.828 Contact with and (suspected) exposure to other viral communicable diseases; F10.10 Alcohol abuse, uncomplicated; F32.9 Major depressive disorder, single episode, unspecified; G31.84 Mild cognitive impairment of uncertain or unknown etiology; G89.29 Other chronic pain; I10 Essential (primary) hypertension; Y90.9 Presence of alcohol in blood, level not specified; R79.89 Other specified abnormal findings of blood chemistry; E87.6 Hypokalemia; I45.6 Pre-excitation syndrome; K76.0 Fatty (change of) liver, not elsewhere classified; Z82.49 Family history of ischemic heart disease and other diseases of the circulatory system; Z83.3 Family history of diabetes mellitus; Z87.891 Personal history of nicotine dependence; Z90.5 Acquired absence of kidney; Z79.899 Other long term (current) drug therapy
CPT/HCPCS: 36415; 70450; 70551; 71045; 76705; 78227; 80048; 80053; 80061; 80320; 81001; 82105; 82140; 83036; 83880; 84439; 84443; 84484; 85025; 87046; 87077; 87086; 87186; 87324; 87427; 93005; 99285; G0378; J0696; J1650; J2550; J3411; 92523-GN; A9537; C9898; G0480; J3475; J7040; U0003

== ENCOUNTER 2020-07-29 03:59 | Inpatient (IN) | payer MEDICAID ==
[~2020-07-29] VITALS: Ht 167.6 cm; Wt 87.9 kg
[2020-07-29] VITALS (11 sets, daily range): BP systolic 89–109; BP diastolic 53–72
[~2020-07-29 03:59] MED LIST changes: -FOLI-17 PO; +FOLI1TAB32 PO; +IBUP-1222 PO; +LACT20SO13 PO; +RIFA200T5 PO
--- NOTE | 2020-07-29 04:51 | NUR ---
BILAT PIV STARTED LABS DRAWN 2L NS INFUSING AT THIS TIME, PT POSITIONED IN [place]. BP UP FORM 78/45 TO 81/47
[2020-07-29] MEDS ORDERED: SODIUM CHLORIDE FLUSH 10ML SYR IVF ONE (05:00)
[2020-07-29] MEDS ORDERED: SODIUM CHLORIDE 0.9% 1,000ML IVBOLUS ONE ×2 (05:00→06:30)
--- NOTE | 2020-07-29 05:05 | NUR ---
PT TO CT
[2020-07-29 05:10] LABS: BASOPHILS % (AUTO) 0 % (0-1); EOSINOPHILS % (AUTO) 2 % (1-7); LYMPHOCYTES % (AUTO) 18 % (22-44); MEAN CORPUSCULAR HEMOGLOBIN 31.6 pg (27.0-34.8); MEAN CORPUSCULAR HGB CONC 33.3 g/dL (32.4-35.8); MEAN PLATELET VOLUME 8.8 fL (7.4-10.4); MONOCYTES % (AUTO) 7 % (2-9); NEUTROPHILS % (AUTO) 73 % (42-75); PLATELET COUNT 233 x10^3/uL (130-400); RED BLOOD COUNT 1.84 x10^6/uL (3.82-5.3); RED CELL DISTRIBUTION WIDTH 20.4 % (9.6-15.2)
--- NOTE | 2020-07-29 05:12 | NUR ---
PT BACK FROM CT
[2020-07-29 05:22] LABS: MD NO
[2020-07-29 05:23] LABS: ANION GAP 10 mmol/L (5-15); CALCIUM 11.7 mg/dL (8.5-10.1); CHLORIDE 107 mmol/L (98-107)
[2020-07-29 05:29] LABS: ALANINE AMINOTRANSFERASE 29 U/L (12-78); ALKALINE PHOSPHATASE 172 U/L (45-117); BILIRUBIN,TOTAL 1.2 mg/dL (0.2-1.0); CREATININE 2.41 mg/dL (0.55-1.02); TOTAL PROTEIN 6.1 g/dL (6.4-8.2); TROPONIN I < 0.015 ng/mL (0.000-0.045)
[2020-07-29] MEDS ORDERED: FAMOTIDINE 20 MG/2 ML IVPush ONE (05:30)
[2020-07-29] MEDS ORDERED: ONDANSETRON 2MG/ML, 2ML IVPush ONE (05:30)
[2020-07-29] MEDS ORDERED: MAALOX/HYOSCYAMINE/LIDOCAINE 45 ML BTL PO ONE (05:30)
--- NOTE | 2020-07-29 05:43 | NUR ---
LAB AT BEDSIDE FOR ADDITIONAL DRAWS
--- NOTE | 2020-07-29 05:49 | NUR ---
CONVERSATION WITH ESTEBAN MAYORGA ABOUT PT MEETING SEPSIS CRITERIA, ADDING LACTIC AT THIS TIME. WILL DISCUSS WITH DR LLOYD ABOUT ABX AND FLUIDS
[2020-07-29] MEDS ORDERED: POTASSIUM CHLORIDE 20 MEQ TAB.ER.PRT PO ONE (06:00)
--- NOTE | 2020-07-29 06:09 | NUR ---
BLOOD BANK CALLED ABOUT [facility] INFORMED THAT BLOOD IS NEEDED SOON AVAILABLE.
[2020-07-29] MEDS ORDERED: ONDANSETRON 2MG/ML, 2ML ONE (06:24)
[2020-07-29] MEDS ORDERED: MAALOX/HYOSCYAMINE/LIDOCAINE 45 ML BTL ONE (06:24)
[2020-07-29] MEDS ORDERED: FAMOTIDINE 20 MG/2 ML ONE (06:24)
--- NOTE | 2020-07-29 06:28 | NUR ---
PT MEDICATED PER MAR FOR GERD AT THIS TIME, HELD JENIFER PT STS SHE CAN'T SWALLOW PILLS RIGHT NOW, ERP AWARE
[2020-07-29 06:36] LABS: INTERNATIONAL NORMALIZED RATIO 1.48 (0.93-1.1); PROTHROMBIN TIME 15.7 Seconds (9.6-11.5)
--- NOTE | 2020-07-29 07:00 | NUR ---
Report received and care assumed. Blood started with checks confirmed with off-going RN. Pt states she feels as if she has been incontinent of BM. No BM present at this time.
--- NOTE | 2020-07-29 07:06 | NUR ---
Lactic Acid level result noted, discussed with . No source for abx needed. Pt has rectal bleeding with low H/H. Currently only one unit PRBC's ordered. states she will require more, but cannot order more than one at a time in ER at this facility.
--- NOTE | 2020-07-29 07:15 | NUR ---
Small amount of mucous present on chucks pad. Pt skin intact, wiped clean with gauze pads and new chucks pad placed under pt. Pt repositioned in bed and VS reassessed. No transfusion reaction s/s present at this time. Blood gtt rate increased at this time as well.
[2020-07-29] MEDS ORDERED: SODIUM CHLORIDE FLUSH 10ML SYR IVF PRN (07:30)
--- NOTE | 2020-07-29 07:31 | NUR ---
Ice ships and lemon-tonaw[place] soda brought into pt bedside per pt request at this time. VS assessed for q15min checks without significant change and no transfusion rxn s/s noted thus far. Blood infusing without difficulties.
--- NOTE | 2020-07-29 07:51 | NUR ---
Report called to JORDON Celis on the floor. Pt aware of pending transport to room 487 and readied to go.
--- NOTE | 2020-07-29 07:57 | NUR ---
Blood transfusion completed, NS flush started now. Pt with admitting MD at bedside in ED for exam. Transport arrived and will have to be called back for transport when MD done with exam.
[2020-07-29] MEDS ORDERED: BACLOFEN 10 MG TABLET PO PRN (08:30)
[2020-07-29] MEDS ORDERED: LORazepam 2 MG/ML, 1ML IVPush PRN (08:30)
[2020-07-29] MEDS ORDERED: PHARMACY MAY ADJ FOR RENAL FX MC PRN (08:30)
[2020-07-29] MEDS ORDERED: LORazepam 1MG TABLET PO PRN (08:30)
[2020-07-29] MEDS ORDERED: PANTOPRAZOLE 80 MG in SODIUM CHLORIDE 0.9% 50 ML IV ONE (08:30)
[2020-07-29] MEDS: NS + 20MEQ KCL 1,000 ML IV SCH (09:53)
[2020-07-29 09:54] LABS: ANION GAP 7 mmol/L (5-15); CALCIUM 10.7 mg/dL (8.5-10.1); CHLORIDE 113 mmol/L (98-107); CREATININE 2.17 mg/dL (0.55-1.02)
[2020-07-29 09:55] LABS: ALANINE AMINOTRANSFERASE 24 U/L (12-78); ALBUMIN 1.8 g/dL (3.4-5.0)
[2020-07-29 09:56] LABS: ALKALINE PHOSPHATASE 153 U/L (45-117); BILIRUBIN,TOTAL 2.2 mg/dL (0.2-1.0); TOTAL PROTEIN 5.5 g/dL (6.4-8.2)
[2020-07-29] MEDS: POTASSIUM CHLORIDE 20 MEQ, MAGNESIUM SULFATE 1 GM, THIAMINE 200 MG, FOLIC ACID 1 MG in ... IV SCH (09:57)
[2020-07-29] MEDS: PANTOPRAZOLE 80 MG in SODIUM CHLORIDE 0.9% 100 ML IV SCH ×2 (09:58→20:20)
[2020-07-29] MEDS: LACTULOSE 20 GM/30 ML UDC PO SCH ×3 (11:00→20:20)
[2020-07-29] MEDS: SERTRALINE 50MG TABLET PO SCH (11:01)
[2020-07-29] MEDS: RIFAXIMIN 200 MG TABLET PO SCH ×3 (11:01→20:25)
[2020-07-29] MEDS ORDERED: CHLORHEXIDINE 15 ML UDC ONE (14:26)
[2020-07-29] MEDS ORDERED: ALBUTEROL SULFATE 2.5 MG/3 ML NPPB PRN (15:00)
[2020-07-29] MEDS ORDERED: OXYcodone 5 MG/5 ML ORAL.SOL UDC PO PRN (15:00)
[2020-07-29] MEDS ORDERED: FENTANYL PF 100 MCG/2ML IV PRN (15:00)
[2020-07-29] MEDS ORDERED: LABETALOL 5MG/ML, 20ML IV PRN (15:00)
[2020-07-29] MEDS ORDERED: ONDANSETRON 2MG/ML, 2ML IVPush PRN (15:00)
[2020-07-29] MEDS ORDERED: MIDAZOLAM 1 MG/ML, 2ML IV PRN (15:00)
[2020-07-29] MEDS ORDERED: PROPOFOL 10 MG/ML, 20ML ONE (16:29)
[2020-07-29] MEDS ORDERED: HYDR12.575 PO (16:59)
[2020-07-29] MEDS ORDERED: LOSA100T14 PO (16:59)
[2020-07-30 00:55] VITALS: BP 97/60
[2020-07-30] MEDS: NS + 20MEQ KCL 1,000 ML IV SCH (05:33)
[2020-07-30 06:00] LABS: BASOPHILS % (AUTO) 0 % (0-1); EOSINOPHILS % (AUTO) 3 % (1-7); LYMPHOCYTES % (AUTO) 19 % (22-44); MEAN CORPUSCULAR HEMOGLOBIN 31.9 pg (27.0-34.8); MEAN CORPUSCULAR HGB CONC 34.6 g/dL (32.4-35.8); MEAN PLATELET VOLUME 8.6 fL (7.4-10.4); MONOCYTES % (AUTO) 8 % (2-9); NEUTROPHILS % (AUTO) 70 % (42-75); PLATELET COUNT 172 x10^3/uL (130-400); RED CELL DISTRIBUTION WIDTH 17.6 % (9.6-15.2)
[2020-07-30 06:04] LABS: MD NO
[2020-07-30 06:06] LABS: ALBUMIN 1.8 g/dL (3.4-5.0); ANION GAP 8 mmol/L (5-15); CALCIUM 9.6 mg/dL (8.5-10.1); CHLORIDE 113 mmol/L (98-107)
[2020-07-30] MEDS: PANTOPRAZOLE 80 MG in SODIUM CHLORIDE 0.9% 100 ML IV SCH (06:06)
[2020-07-30 06:20] LABS: ALANINE AMINOTRANSFERASE 29 U/L (12-78); ALKALINE PHOSPHATASE 142 U/L (45-117); BILIRUBIN,TOTAL 1.6 mg/dL (0.2-1.0); CREATININE 1.82 mg/dL (0.55-1.02); TOTAL PROTEIN 5.3 g/dL (6.4-8.2)
[2020-07-30 07:29] VITALS: BP 103/68
[2020-07-30] MEDS: SERTRALINE 50MG TABLET PO SCH (08:25)
[2020-07-30] MEDS: LACTULOSE 20 GM/30 ML UDC PO SCH ×3 (08:25→20:38)
[2020-07-30] MEDS: RIFAXIMIN 200 MG TABLET PO SCH ×3 (08:25→20:39)
[2020-07-30] MEDS ORDERED: MAGNESIUM SULFATE PMX 4GM/100M 100 ML IVPB ONE (09:00)
[2020-07-30 09:18] LABS: MICROSCOPIC INDICATED
[2020-07-30] MEDS: SUCRALFATE 1 GM/10 ML UDC PO SCH ×3 (09:56→20:39)
[2020-07-30] MEDS: POTASSIUM CHLORIDE 20 MEQ, MAGNESIUM SULFATE 1 GM, THIAMINE 200 MG, FOLIC ACID 1 MG in ... IV SCH (09:56)
[2020-07-30] MEDS: ESOMEPRAZOLE 40 MG IV IVPush SCH ×2 (12:32→23:46)
[2020-07-30] MEDS: POTASSIUM CHLORIDE 20 MEQ TAB.ER.PRT PO SCH ×3 (12:32→20:39)
[2020-07-30 15:10] VITALS: BP 133/81
[2020-07-30] MEDS: FUROSEMIDE 40 MG/4 ML IV SCH (16:34)
[2020-07-30 19:08] VITALS: BP 99/65
[2020-07-31 01:02] VITALS: BP 97/63
[2020-07-31] MEDS: SUCRALFATE 1 GM/10 ML UDC PO SCH ×4 (02:34→20:28)
[2020-07-31 03:32] LABS: ALANINE AMINOTRANSFERASE 38 U/L (12-78); ALBUMIN 1.9 g/dL (3.4-5.0); ANION GAP 7 mmol/L (5-15); CALCIUM 9.3 mg/dL (8.5-10.1); CHLORIDE 115 mmol/L (98-107)
[2020-07-31 03:34] LABS: ALKALINE PHOSPHATASE 169 U/L (45-117); BILIRUBIN,TOTAL 1.3 mg/dL (0.2-1.0); TOTAL PROTEIN 5.8 g/dL (6.4-8.2)
[2020-07-31 06:45] VITALS: BP 93/59
[2020-07-31] MEDS: RIFAXIMIN 200 MG TABLET PO SCH ×3 (08:28→20:28)
[2020-07-31] MEDS: LACTULOSE 20 GM/30 ML UDC PO SCH ×3 (08:28→20:28)
[2020-07-31] MEDS: SERTRALINE 50MG TABLET PO SCH (08:28)
[2020-07-31] MEDS: FUROSEMIDE 40 MG/4 ML IV SCH ×2 (08:29→16:47)
[2020-07-31] MEDS: POTASSIUM CHLORIDE 20 MEQ TAB.ER.PRT PO SCH ×2 (09:00→14:42)
[2020-07-31] MEDS: ESOMEPRAZOLE 40 MG IV IVPush SCH (11:51)
[2020-07-31 12:25] VITALS: BP 104/68
[2020-07-31] MEDS: SODIUM PHOSPHATE 20 MMOL in SODIUM CHLORIDE 0.9% 500 ML IV SCH (17:48)
[2020-07-31 19:23] LABS: MICROSCOPIC NOT IND
[2020-07-31 19:58] VITALS: BP 98/62
[2020-08-01] MEDS: ESOMEPRAZOLE 40 MG IV IVPush SCH ×2 (00:05→12:25)
[2020-08-01 00:49] VITALS: BP 109/72
[2020-08-01] MEDS: SUCRALFATE 1 GM/10 ML UDC PO SCH ×4 (03:32→21:07)
[2020-08-01 06:49] VITALS: BP 102/66
[2020-08-01] MEDS: FUROSEMIDE 40 MG/4 ML IV SCH ×2 (08:05→17:36)
[2020-08-01] MEDS: RIFAXIMIN 200 MG TABLET PO SCH ×3 (08:05→21:07)
[2020-08-01] MEDS: SERTRALINE 50MG TABLET PO SCH (08:05)
[2020-08-01] MEDS: LACTULOSE 20 GM/30 ML UDC PO SCH ×3 (08:05→21:00)
[2020-08-01 13:40] VITALS: BP 99/66
[2020-08-01] MEDS: SODIUM PHOSPHATE 20 MMOL in SODIUM CHLORIDE 0.9% 500 ML IV SCH (17:37)
[2020-08-01 19:28] VITALS: BP 105/69
[2020-08-02 00:25] VITALS: BP 99/65
[2020-08-02] MEDS: ESOMEPRAZOLE 40 MG IV IVPush SCH ×2 (00:49→11:15)
[2020-08-02] MEDS: SUCRALFATE 1 GM/10 ML UDC PO SCH ×2 (04:15→08:22)
[2020-08-02 06:03] LABS: BASOPHILS % (AUTO) 1 % (0-1); EOSINOPHILS % (AUTO) 3 % (1-7); LYMPHOCYTES % (AUTO) 16 % (22-44); MEAN CORPUSCULAR HEMOGLOBIN 32.2 pg (27.0-34.8); MEAN CORPUSCULAR HGB CONC 33.3 g/dL (32.4-35.8); MEAN PLATELET VOLUME 8.4 fL (7.4-10.4); MONOCYTES % (AUTO) 9 % (2-9); NEUTROPHILS % (AUTO) 72 % (42-75); PLATELET COUNT 197 x10^3/uL (130-400); RED BLOOD COUNT 2.33 x10^6/uL (3.82-5.3); RED CELL DISTRIBUTION WIDTH 19.1 % (9.6-15.2)
[2020-08-02 06:06] LABS: MD NO
[2020-08-02 06:15] LABS: ALBUMIN 1.8 g/dL (3.4-5.0); ANION GAP 6 mmol/L (5-15); CHLORIDE 118 mmol/L (98-107)
[2020-08-02 06:19] LABS: ALANINE AMINOTRANSFERASE 34 U/L (12-78); ALKALINE PHOSPHATASE 152 U/L (45-117); BILIRUBIN,TOTAL 0.9 mg/dL (0.2-1.0); CREATININE 1.19 mg/dL (0.55-1.02); TOTAL PROTEIN 5.5 g/dL (6.4-8.2)
[2020-08-02 07:06] VITALS: BP 123/78
[2020-08-02] MEDS: RIFAXIMIN 200 MG TABLET PO SCH (08:22)
[2020-08-02] MEDS: SERTRALINE 50MG TABLET PO SCH (08:22)
[2020-08-02] MEDS: LACTULOSE 20 GM/30 ML UDC PO SCH (08:22)
[2020-08-02] MEDS: FUROSEMIDE 40 MG/4 ML IV SCH (08:22)
[2020-08-02] MEDS ORDERED: SUCR1ORA5 PO (09:49)
[2020-08-02] MEDS ORDERED: LACT20SO13 PO (09:49)
[2020-08-02] MEDS ORDERED: FURO20TA3 PO (09:49)
[2020-08-02] MEDS ORDERED: PANT40TA6 PO ×3 (11:16→14:29)
== END 2020-08-02 13:55 | disposition home or self-care (01) | DRG 380 ==
LOC: ED 05:59 → EDIP 07:10 → 4EST 08:18 → DCLOUNGE 08-02 13:39
PROVIDERS: ADMIT Internal Medicine; ATTEND Family Medicine
PROC: 30233N1 Transfusion of Nonautologous Red Blood Cells into Peripheral Vein, Percutaneous Approach (ICD-10-PCS; 2020-07-29)
PROC: 0DJ08ZZ Inspection of Upper Intestinal Tract, Via Natural or Artificial Opening Endoscopic (ICD-10-PCS; principal; 2020-07-29 15:30)
DX: K22.11 Ulcer of esophagus with bleeding (principal); N17.0 Acute kidney failure with tubular necrosis; D68.9 Coagulation defect, unspecified; E72.20 Disorder of urea cycle metabolism, unspecified; F10.239 Alcohol dependence with withdrawal, unspecified; R65.10 Systemic inflammatory response syndrome (SIRS) of non-infectious origin without acute organ dysfunction; D62 Acute posthemorrhagic anemia; D72.829 Elevated white blood cell count, unspecified; E78.5 Hyperlipidemia, unspecified; E83.39 Other disorders of phosphorus metabolism; E83.42 Hypomagnesemia; E87.6 Hypokalemia; E87.70 Fluid overload, unspecified; E88.09 Other disorders of plasma-protein metabolism, not elsewhere classified; F32.9 Major depressive disorder, single episode, unspecified; I10 Essential (primary) hypertension; I45.6 Pre-excitation syndrome; K21.00 Gastro-esophageal reflux disease with esophagitis, without bleeding; K29.71 Gastritis, unspecified, with bleeding; K72.90 Hepatic failure, unspecified without coma; Z20.822 Contact with and (suspected) exposure to COVID-19; K76.0 Fatty (change of) liver, not elsewhere classified; Z80.0 Family history of malignant neoplasm of digestive organs; Z87.828 Personal history of other (healed) physical injury and trauma; R29.6 Repeated falls
CPT/HCPCS: 36415; 70450; 71045; 72125; 76700; 80053; 80320; 81001; 81003; 82140; 82728; 83036; 83540; 83550; 83605; 83690; 83735; 84100; 84443; 84466; 84484; 85014; 85018; 85025; 85610; 85730; 86850; 86900; 86923; 87086; 87635; 93005; 93970; 96361; 96374; 96375; 99285; G0378; J1940; J2405; J2704; J3411; J3475; J3480; C9113; G0480; J7030; J7040; P9016

== ENCOUNTER 2020-08-30 21:38 | Inpatient (IN) | payer MEDICAID ==
[~2020-08-30] VITALS: Ht 170.2 cm; Wt 86.0 kg
[~2020-08-30 21:38] MED LIST changes: +FURO20TA3 PO; +HYDR12.575 PO; +PANT40TA6 PO; +SUCR1ORA5 PO
[2020-08-30] MEDS ORDERED: PANTOPRAZOLE 80 MG in SODIUM CHLORIDE 0.9% 100 ML IV SCH (22:00)
[2020-08-30] MEDS ORDERED: ONDANSETRON 2MG/ML, 2ML IVPush ONE (22:00)
[2020-08-30] MEDS ORDERED: SODIUM CHLORIDE 0.9% 1,000ML IVBOLUS ONE (22:00)
[2020-08-30] MEDS ORDERED: PANTOPRAZOLE 80 MG in SODIUM CHLORIDE 0.9% 50 ML IVPB ONE (22:00)
[2020-08-30] MEDS ORDERED: ONDANSETRON 2MG/ML, 2ML ONE (22:16)
[2020-08-30 22:30] LABS: ALANINE AMINOTRANSFERASE 20 U/L (12-78); ALBUMIN 1.7 g/dL (3.4-5.0); ANION GAP 14 mmol/L (5-15); CALCIUM 7.3 mg/dL (8.5-10.1); CHLORIDE 111 mmol/L (98-107)
[2020-08-30 22:31] LABS: BASOPHILS % (AUTO) 0 % (0-1); EOSINOPHILS % (AUTO) 0 % (1-7); LYMPHOCYTES % (AUTO) 6 % (22-44); MEAN CORPUSCULAR HEMOGLOBIN 30.8 pg (27.0-34.8); MEAN CORPUSCULAR HGB CONC 32.9 g/dL (32.4-35.8); MEAN PLATELET VOLUME 8.6 fL (7.4-10.4); MONOCYTES % (AUTO) 6 % (2-9); NEUTROPHILS % (AUTO) 88 % (42-75); PLATELET COUNT 163 x10^3/uL (130-400); RED BLOOD COUNT 1.37 x10^6/uL (3.82-5.3); RED CELL DISTRIBUTION WIDTH 17.9 % (9.6-15.2)
[2020-08-30 22:33] LABS: ALKALINE PHOSPHATASE 108 U/L (45-117); BILIRUBIN,TOTAL 1.3 mg/dL (0.2-1.0); TOTAL PROTEIN 5.4 g/dL (6.4-8.2)
[2020-08-30 22:42] LABS: MD NO
--- NOTE | 2020-08-30 22:45 | NUR ---
PT BROUGHT IN BY [facility] FOR VOMITING BLOOD AND BLOOD IN JACOB THAT STARTED TODAY. PT HAS HX OF ETOH ABUSE WITH HIGH AMONIA LEVELS. PT A/O X2 AT CONTACT WITH 20G IN PLACE IN R ARM BY [facility].
[2020-08-30 22:49] LABS: INTERNATIONAL NORMALIZED RATIO 1.52 (0.93-1.1); PROTHROMBIN TIME 16.1 Seconds (9.6-11.5)
--- NOTE | 2020-08-30 22:53 | NUR ---
STUART PT DAUGHTER P# [phone]
[2020-08-30] MEDS ORDERED: POTASSIUM CHLORIDE 40 MEQ in SODIUM CHLORIDE 0.9% 500 ML IV ONE (23:00)
[2020-08-30] MEDS ORDERED: CALCIUM CHLORIDE 10%, 10ML SYR IVPush ONE (23:00)
[2020-08-30] MEDS ORDERED: LORazepam 2 MG/ML, 1ML IVPush ONE (23:00)
[2020-08-30] MEDS ORDERED: LORazepam 2 MG/ML, 1ML ONE (23:20)
[2020-08-30] MEDS ORDERED: CALCIUM CHLORIDE 10%, 10ML SYR ONE (23:20)
[2020-08-30] MEDS ORDERED: NS + 40MEQ KCL 0 ML IV ONE (23:22)
--- NOTE | 2020-08-30 23:57 | NUR ---
PT VOMITED BLOOD ON BED AND HAD A BLOODY BOWEL MOVEMENT. PROVIDER NOTIFIED. PT BED CHANGED AND PT CLEANED AND CHANGED WELL. PROVIDER REQUESTED O- BLOOD RITA IF BLOOD BANK CAN NOT TYPE AND SCEEN QUICKLY.
--- NOTE | 2020-08-30 23:58 | NUR ---
BLOOD BANK CALLED FOR O- BLOOD
[2020-08-31] VITALS (27 sets, daily range): BP systolic 87–130; BP diastolic 40–86
[2020-08-31] MEDS ORDERED: LORazepam 1MG TABLET PO PRN ×4 (00:30)
[2020-08-31] MEDS ORDERED: LORazepam 0.5MG TABLET PO PRN (00:30)
[2020-08-31] MEDS ORDERED: OXYcodone IR 5MG TABLET PO PRN (00:30)
[2020-08-31] MEDS ORDERED: LORazepam 2 MG/ML, 1ML IV PRN ×5 (00:30)
[2020-08-31] MEDS ORDERED: morphine SULFATE 10 MG/ML, 1ML IVPush PRN (00:30)
[2020-08-31] MEDS ORDERED: PROMETHAZINE 25 MG/ML, 1ML IM PRN (00:30)
[2020-08-31] MEDS ORDERED: ONDANSETRON 2MG/ML, 2ML IVPush PRN (00:30)
[2020-08-31] MEDS ORDERED: ONDANSETRON ODT 4 MG PO PRN (00:30)
[2020-08-31] MEDS ORDERED: hydrALAzine 20 MG/ML, 1ML IVPush PRN (00:30)
[2020-08-31] MEDS ORDERED: LACTULOSE 3.3 GM/5 ML ORAL.SOL RC ONE (00:30)
--- NOTE | 2020-08-31 00:31 | NUR ---
REPORT CALLED TO [facility]
[2020-08-31 00:46] LABS: FREE T4 (FREE THYROXINE) 1.13 ng/dL (0.76-1.46)
[2020-08-31] MEDS ORDERED: MAGNESIUM SULFATE PMX 2GM/50ML 50 ML IV ONE (01:00)
[2020-08-31 02:07] LABS: MICROSCOPIC NOT IND
[2020-08-31] MEDS ORDERED: MAGNESIUM SULFATE 1 GM/2 ML ONE (03:15)
[2020-08-31] MEDS ORDERED: ETOMIDATE 20 MG/10 ML IVPush ONE (03:30)
[2020-08-31] MEDS ORDERED: MIDAZOLAM 1 MG/ML, 5ML IVPush ONE ×2 (03:30→21:30)
[2020-08-31] MEDS: THIAMINE 200 MG, FOLIC ACID 1 MG in D5%-0.9% NACL 1,000 ML IV SCH (03:54)
[2020-08-31] MEDS ORDERED: FENTANYL PF 100 MCG/2ML IVPush PRN (04:00)
[2020-08-31] MEDS ORDERED: PHARMACY MAY ADJ FOR RENAL FX MC SCH (04:00)
[2020-08-31] MEDS ORDERED: LIDOCAINE-MPF 1%, 2ML ENDO PRN (04:00)
[2020-08-31] MEDS ORDERED: POTASSIUM CHLORIDE 40 MEQ in SODIUM CHLORIDE 0.9% 500 ML IV ONE (04:30)
[2020-08-31 04:32] LABS: ALANINE AMINOTRANSFERASE 21 U/L (12-78); ALBUMIN 1.7 g/dL (3.4-5.0); ANION GAP 13 mmol/L (5-15); CALCIUM 7.3 mg/dL (8.5-10.1); CHLORIDE 114 mmol/L (98-107)
[2020-08-31 04:35] LABS: ALKALINE PHOSPHATASE 95 U/L (45-117); BILIRUBIN,TOTAL 2.3 mg/dL (0.2-1.0); CHOL/HDL RATIO 3.6; CHOLESTEROL, TOTAL 119 mg/dL (140-239); CREATININE 1.78 mg/dL (0.55-1.02); HDL CHOL % 28 % (28-40); HDL CHOLESTEROL (DIRECT) 33 mg/dL (40-60); LDL CHOLESTEROL,CALCULATED 65 mg/dL (54-169); TOTAL PROTEIN 5.1 g/dL (6.4-8.2); TRIGLYCERIDES 105 mg/dL (50-200); VLDL CHOLESTEROL 21 mg/dL (0-25)
[2020-08-31 04:38] LABS: BASOPHILS % (AUTO) 0 % (0-1); EOSINOPHILS % (AUTO) 0 % (1-7); LYMPHOCYTES % (AUTO) 9 % (22-44); MEAN CORPUSCULAR HEMOGLOBIN 30.5 pg (27.0-34.8); MEAN CORPUSCULAR HGB CONC 34.7 g/dL (32.4-35.8); MEAN PLATELET VOLUME 8.5 fL (7.4-10.4); MONOCYTES % (AUTO) 8 % (2-9); NEUTROPHILS % (AUTO) 83 % (42-75); PLATELET COUNT 102 x10^3/uL (130-400); RED BLOOD COUNT 2.61 x10^6/uL (3.82-5.3); RED CELL DISTRIBUTION WIDTH 14.7 % (9.6-15.2)
[2020-08-31 04:39] LABS: MD NO
[2020-08-31] MEDS: DIAZEPAM 5 MG/ML, 2ML IV SCH ×5 (07:00→20:00)
[2020-08-31] MEDS: PROPOFOL 100 ML IV PRN ×4 (07:24→17:00)
[2020-08-31] MEDS: SUCRALFATE 1 GM/10 ML UDC PO SCH ×4 (07:56→21:00)
[2020-08-31] MEDS: CEFTRIAXONE PMX 1GM/50ML 50 ML IV SCH (07:56)
[2020-08-31] MEDS ORDERED: ALBUMIN HUMAN 5% 500 ML IV ONE (08:00)
[2020-08-31] MEDS: PANTOPRAZOLE 80 MG in SODIUM CHLORIDE 0.9% 100 ML IV SCH ×2 (08:20→17:25)
[2020-08-31] MEDS: METRONIDAZOLE PMX 500MG/100ML 100 ML IV SCH ×2 (08:25→17:25)
[2020-08-31] MEDS: LACTULOSE 10 GM/15 ML UDC PO SCH ×2 (08:25→21:36)
[2020-08-31] MEDS: PHYTONADIONE 10 MG/ML, 1ML SQ SCH (08:42)
[2020-08-31] MEDS: NOREPINEPHRINE 8 MG in SODIUM CHLORIDE 0.9% 242 ML IV PRN (13:31)
[2020-08-31] MEDS: MIDODRINE 5 MG TABLET PO SCH ×2 (16:59→21:37)
[2020-08-31] MEDS: ALBUMIN HUMAN 25% 100 ML IV SCH ×2 (17:38→21:38)
[2020-08-31] MEDS ORDERED: MIDAZOLAM 1 MG/ML, 5ML ONE (19:32)
[2020-08-31 20:48] LABS: MEAN CORPUSCULAR HEMOGLOBIN 30.6 pg (27.0-34.8); MEAN CORPUSCULAR HGB CONC 34.8 g/dL (32.4-35.8); MEAN PLATELET VOLUME 8.2 fL (7.4-10.4); PLATELET COUNT 97 x10^3/uL (130-400); RED CELL DISTRIBUTION WIDTH 15.3 % (9.6-15.2)
[2020-08-31 20:49] LABS: INTERNATIONAL NORMALIZED RATIO 1.42 (0.93-1.1); PROTHROMBIN TIME 15.1 Seconds (9.6-11.5)
[2020-08-31 20:50] LABS: ALBUMIN 2.2 g/dL (3.4-5.0); ANION GAP 9 mmol/L (5-15); CALCIUM 7.4 mg/dL (8.5-10.1); CHLORIDE 116 mmol/L (98-107)
[2020-08-31 20:53] LABS: ALANINE AMINOTRANSFERASE 15 U/L (12-78); ALKALINE PHOSPHATASE 76 U/L (45-117); BILIRUBIN,TOTAL 1.5 mg/dL (0.2-1.0); CREATININE 2.07 mg/dL (0.55-1.02); TOTAL PROTEIN 4.9 g/dL (6.4-8.2)
[2020-08-31] MEDS: KSCALE TO 4.5 IV SCH (22:00)
[2020-08-31] MEDS ORDERED: POTASSIUM CHLORIDE 40 MEQ in SODIUM CHLORIDE 0.9% 100 ML IV ONE (22:00)
[2020-09-01] VITALS: BP 106/68
[2020-09-01 00:15] VITALS: BP 106/69
[2020-09-01 00:30] VITALS: BP 115/74
[2020-09-01] MEDS: METRONIDAZOLE PMX 500MG/100ML 100 ML IV SCH ×4 (00:33→23:38)
[2020-09-01 00:45] VITALS: BP 98/61
[2020-09-01 01:00] VITALS: BP 106/68
[2020-09-01 01:15] VITALS: BP 110/71
[2020-09-01] MEDS ORDERED: POTASSIUM CHLORIDE 40 MEQ in SODIUM CHLORIDE 0.9% 100 ML IV SCH (03:00)
[2020-09-01] MEDS: ALBUMIN HUMAN 25% 100 ML IV SCH ×4 (03:41→20:44)
[2020-09-01] MEDS: KSCALE TO 4.5 IV SCH (04:00)
[2020-09-01] MEDS: DIAZEPAM 5 MG/ML, 2ML IV SCH ×6 (04:00→23:39)
[2020-09-01] MEDS: THIAMINE 200 MG, FOLIC ACID 1 MG in D5%-0.9% NACL 1,000 ML IV SCH (04:37)
[2020-09-01] MEDS: PANTOPRAZOLE 80 MG in SODIUM CHLORIDE 0.9% 100 ML IV SCH ×2 (04:37→17:44)
[2020-09-01] MEDS: NOREPINEPHRINE 8 MG in SODIUM CHLORIDE 0.9% 242 ML IV PRN ×2 (05:32→20:47)
[2020-09-01 05:36] LABS: BASOPHILS % (AUTO) 1 % (0-1); EOSINOPHILS % (AUTO) 5 % (1-7); LYMPHOCYTES % (AUTO) 17 % (22-44); MEAN CORPUSCULAR HEMOGLOBIN 31.3 pg (27.0-34.8); MEAN CORPUSCULAR HGB CONC 35.5 g/dL (32.4-35.8); MEAN PLATELET VOLUME 8.1 fL (7.4-10.4); MONOCYTES % (AUTO) 8 % (2-9); NEUTROPHILS % (AUTO) 70 % (42-75); PLATELET COUNT 66 x10^3/uL (130-400); RED BLOOD COUNT 2.76 x10^6/uL (3.82-5.3); RED CELL DISTRIBUTION WIDTH 14.8 % (9.6-15.2)
[2020-09-01 05:39] LABS: MD NO
[2020-09-01] MEDS: CEFTRIAXONE PMX 1GM/50ML 50 ML IV SCH (05:56)
[2020-09-01] MEDS: SUCRALFATE 1 GM/10 ML UDC PO SCH ×4 (05:56→20:45)
[2020-09-01 06:24] LABS: ALBUMIN 3.3 g/dL (3.4-5.0); ANION GAP 9 mmol/L (5-15); CALCIUM 7.7 mg/dL (8.5-10.1); CHLORIDE 117 mmol/L (98-107); CREATININE 2.15 mg/dL (0.55-1.02)
[2020-09-01] MEDS: PROPOFOL 100 ML IV PRN ×3 (07:39→23:39)
[2020-09-01] MEDS ORDERED: POTASSIUM CHLORIDE 20 MEQ PACKET ONE (08:37)
[2020-09-01] MEDS: PHYTONADIONE 10 MG/ML, 1ML SQ SCH (08:43)
[2020-09-01] MEDS: POTASSIUM CHLORIDE 10% 40 MEQ/30 ML UDC PO SCH ×2 (08:44→20:46)
[2020-09-01] MEDS: MIDODRINE 5 MG TABLET PO SCH ×3 (08:44→20:45)
[2020-09-01] MEDS: LACTULOSE 10 GM/15 ML UDC PO SCH ×2 (08:45→20:46)
[2020-09-02] MEDS: THIAMINE 200 MG, FOLIC ACID 1 MG in D5%-0.9% NACL 1,000 ML IV SCH (01:57)
[2020-09-02] MEDS: DIAZEPAM 5 MG/ML, 2ML IV SCH ×5 (03:34→20:11)
[2020-09-02] MEDS: ALBUMIN HUMAN 25% 100 ML IV SCH ×2 (03:35→07:43)
[2020-09-02] MEDS: PANTOPRAZOLE 80 MG in SODIUM CHLORIDE 0.9% 100 ML IV SCH (04:40)
[2020-09-02 05:14] LABS: BASOPHILS % (AUTO) 1 % (0-1); EOSINOPHILS % (AUTO) 7 % (1-7); LYMPHOCYTES % (AUTO) 16 % (22-44); MEAN CORPUSCULAR HEMOGLOBIN 31.3 pg (27.0-34.8); MEAN CORPUSCULAR HGB CONC 35.2 g/dL (32.4-35.8); MONOCYTES % (AUTO) 8 % (2-9); NEUTROPHILS % (AUTO) 69 % (42-75); PLATELET COUNT 61 x10^3/uL (130-400); RED BLOOD COUNT 2.64 x10^6/uL (3.82-5.3); RED CELL DISTRIBUTION WIDTH 15.3 % (9.6-15.2)
[2020-09-02 05:16] LABS: MD NO
[2020-09-02 06:07] LABS: ANION GAP 7 mmol/L (5-15); CALCIUM 7.8 mg/dL (8.5-10.1); CHLORIDE 120 mmol/L (98-107)
[2020-09-02] MEDS: PROPOFOL 100 ML IV PRN (06:10)
[2020-09-02] MEDS: CEFTRIAXONE PMX 1GM/50ML 50 ML IV SCH (07:42)
[2020-09-02] MEDS: MIDODRINE 5 MG TABLET PO SCH (07:43)
[2020-09-02] MEDS: SUCRALFATE 1 GM/10 ML UDC PO SCH ×2 (07:43→10:26)
[2020-09-02] MEDS: LACTULOSE 10 GM/15 ML UDC PO SCH (07:43)
[2020-09-02] MEDS: PHYTONADIONE 10 MG/ML, 1ML SQ SCH (07:43)
[2020-09-02] MEDS: METRONIDAZOLE PMX 500MG/100ML 100 ML IV SCH (08:26)
[2020-09-02] MEDS ORDERED: ONDANSETRON 2MG/ML, 2ML IVPush PRN (20:30)
[2020-09-02] MEDS ORDERED: LORazepam 2 MG/ML, 1ML IV ONE (20:30)
[2020-09-02] MEDS ORDERED: morphine SULFATE 10 MG/ML, 1ML ONE (20:31)
[2020-09-02] MEDS ORDERED: LORazepam 2 MG/ML, 1ML ONE (20:32)
[2020-09-02] MEDS ORDERED: morphine SULFATE 10 MG/ML, 1ML IVPush PRN (21:00)
[2020-09-02] MEDS ORDERED: morphine SULFATE 10 MG/ML, 1ML IM ONE (21:00)
[2020-09-02] MEDS: LORazepam 2 MG/ML, 1ML IVPush PRN ×3 (21:21→23:21)
[2020-09-02] MEDS: MORPHINE SULFATE 4 MG/ML, 1ML IVPush PRN ×3 (21:22→23:21)
[2020-09-03] MEDS: MORPHINE SULFATE 4 MG/ML, 1ML IVPush PRN ×17 (00:06→16:36)
[2020-09-03] MEDS: LORazepam 2 MG/ML, 1ML IVPush PRN ×16 (00:06→16:37)
[2020-09-03] MEDS ORDERED: SCOPOLAMINE 1MG PATCH TD ONE (09:00)
[2020-09-03] MEDS: ATROPINE OPHTH SOLN 1%, 5ML PO PRN ×4 (10:15→21:54)
== END 2020-09-03 23:15 | disposition expired | DRG 871 ==
LOC: ED 21:55 → EDIP 23:14 → CCU 08-31 00:46 → 4NW 09-03 16:54
PROVIDERS: ADMIT Internal Medicine; ATTEND Internal Medicine
PROC: 0BH17EZ Insertion of Endotracheal Airway into Trachea, Via Natural or Artificial Opening (ICD-10-PCS; 2020-08-31)
PROC: 02HV33Z Insertion of Infusion Device into Superior Vena Cava, Percutaneous Approach (ICD-10-PCS; 2020-08-31)
PROC: B548ZZA Ultrasonography of Superior Vena Cava, Guidance (ICD-10-PCS; 2020-08-31)
PROC: 30233K1 Transfusion of Nonautologous Frozen Plasma into Peripheral Vein, Percutaneous Approach (ICD-10-PCS; 2020-08-31)
PROC: 30233N1 Transfusion of Nonautologous Red Blood Cells into Peripheral Vein, Percutaneous Approach (ICD-10-PCS; 2020-08-31)
PROC: 0DJ08ZZ Inspection of Upper Intestinal Tract, Via Natural or Artificial Opening Endoscopic (ICD-10-PCS; 2020-08-31)
PROC: 5A1945Z Respiratory Ventilation, 24-96 Consecutive Hours (ICD-10-PCS; principal; 2020-08-31 11:30)
DX: A41.9 Sepsis, unspecified organism (principal); I81 Portal vein thrombosis; J96.01 Acute respiratory failure with hypoxia; K29.71 Gastritis, unspecified, with bleeding; N17.0 Acute kidney failure with tubular necrosis; J18.9 Pneumonia, unspecified organism; D68.9 Coagulation defect, unspecified; F10.239 Alcohol dependence with withdrawal, unspecified; I47.1 Supraventricular tachycardia; I67.4 Hypertensive encephalopathy; K22.10 Ulcer of esophagus without bleeding; D62 Acute posthemorrhagic anemia; K76.6 Portal hypertension; D50.9 Iron deficiency anemia, unspecified; D69.6 Thrombocytopenia, unspecified; E66.9 Obesity, unspecified; Z68.29 Body mass index [BMI] 29.0-29.9, adult; E78.5 Hyperlipidemia, unspecified; E87.6 Hypokalemia; E88.09 Other disorders of plasma-protein metabolism, not elsewhere classified; F32.9 Major depressive disorder, single episode, unspecified; I10 Essential (primary) hypertension; K31.89 Other diseases of stomach and duodenum; K70.11 Alcoholic hepatitis with ascites; R57.8 Other shock; Z51.5 Encounter for palliative care; Z82.49 Family history of ischemic heart disease and other diseases of the circulatory system; K72.90 Hepatic failure, unspecified without coma; K70.31 Alcoholic cirrhosis of liver with ascites; Z87.19 Personal history of other diseases of the digestive system; K76.0 Fatty (change of) liver, not elsewhere classified; G31.2 Degeneration of nervous system due to alcohol; Z90.721 Acquired absence of ovaries, unilateral
CPT/HCPCS: 36415; 36430; 36600; 71045; 76700; 80048; 80053; 80061; 80320; 81003; 82040; 82140; 82803; 83036; 83690; 83735; 84100; 84132; 84439; 84443; 84478; 85014; 85018; 85025; 85027; 85610; 86850; 86900; 86923; 87070; 87081; 87205; 93005; 94002; 94003; 96374; 96375; G0378; J0696; J2250; J2270; J2405; J2704; J3360; J3411; J3430; J3475; J3480; J7042; P9045; P9047; C9113; G0480; J2060; J7030; J7040; J7050; P9016; P9017